=== PATIENT | female | born 1955 | race Caucasian/White ===

== ENCOUNTER 2020-04-05 11:57 | Outpatient (REF) | payer MEDICARE, SELFPAY ==
[2020-04-05 12:41] LABS: MANUAL DIFF FLAG NO
[2020-04-05 12:46] LABS: Basophils Absolute Auto 0.1 X10*3/uL (0.0-0.2); Basophils Percent Auto 1.2 % (0-2); Eosinophils Absolute Auto 0.2 X10*3/uL (0.0-0.4); Eosinophils Percent Auto 3.3 % (0-4); Hematocrit 41.6 % (37-47); Hemoglobin 14.7 g/dl (12.0-16.0); Imm Gran Abs Auto 0.01 X10*3/uL (0.00-0.03); Imm Gran Pct Auto 0.2 % (0.0-0.4); Lymphocytes Absolute Auto 2.3 X10*3/uL (1.2-4.9); Lymphocytes Percent Auto 39.3 % (20-40); Mean Corpuscular HGB Conc 35.3 g/dl (31.0-35.0); Mean Corpuscular Hemoglobin 32.8 pg (27.0-33.0); Mean Corpuscular Volume 92.9 fL (80-98); Mean Platelet Volume 9.5 fL (9.4-12.3); Monocytes Absolute Auto 1.2 X10*3/uL (0.1-1.2); Neutrophils Absolute Auto 2.1 X10*3/uL (2.0-8.3); Platelet Count 276 X10*3/uL (160-400); Red Blood Count 4.48 X10*6/uL (4.20-5.50); Red Cell Distribution Width 13.2 % (11.0-16.0); White Blood Count 5.8 X10*3/uL (4.8-10.8)
[2020-04-05 13:35] LABS: Alanine Aminotransferase 38 U/L (0-31); Albumin Level 4.3 g/dL (3.5-5.0); Alkaline Phosphatase 77 U/L (39-117); Anion Gap 12 (12-20); Aspartate Amino Transferase 28 U/L (5-31); Bilirubin Total 0.8 mg/dL (0.0-1.0); Blood Urea Nitrogen 22 mg/dL (9-16); C Reactive Protein 0.28 mg/dL (< or = 0.50); Calcium 10.1 mg/dL (8.4-10.2); Carbon Dioxide 31 mmol/L (22-29); Chloride 101 mmol/L (96-108); Estimated Glomerular Filt Rate 51; Glucose Random 96 mg/dL (60-115); Potassium 4.6 mmol/l (3.3-5.1); Sodium 139 mmol/L (135-145); Total Protein 7.4 g/dL (6.5-8.0)
[2020-04-05 13:57] LABS: Erythrocyte Sedimentation Rate 13 MM/HR (0-20)
== END 2020-04-05 11:58 | disposition home or self-care (01) ==
LOC: HO.LAB 11:57
PROVIDERS: PCP Internal Medicine; Visit Provider Student in an Organized Health Care Education/Training Program
DX: L40.50 Arthropathic psoriasis, unspecified (principal); L40.9 Psoriasis, unspecified; Z79.899 Other long term (current) drug therapy
CPT/HCPCS: 36415; 80053; 85025; 85652; 86140

== ENCOUNTER → 2020-04-13 07:20 | Outpatient (BNVA) | payer MEDICARE, SELFPAY | PROVIDERS: PCP Internal Medicine; Referring Provider Internal Medicine; Visit Provider Student in an Organized Health Care Education/Training Program | DX: L40.50 Arthropathic psoriasis, unspecified (principal); L40.9 Psoriasis, unspecified; Z79.899 Other long term (current) drug therapy | CPT/HCPCS: 99214 ==

== ENCOUNTER 2020-07-11 08:35 | Outpatient (REF) | payer MEDICARE, SELFPAY ==
[2020-07-11 09:00] LABS: MANUAL DIFF FLAG NO
[2020-07-11 09:04] LABS: Basophils Absolute Auto 0.1 X10*3/uL (0.0-0.2); Basophils Percent Auto 1.8 % (0-2); Eosinophils Absolute Auto 0.4 X10*3/uL (0.0-0.4); Eosinophils Percent Auto 5.6 % (0-4); Hematocrit 42.4 % (37-47); Hemoglobin 14.4 g/dl (12.0-16.0); Imm Gran Abs Auto 0.02 X10*3/uL (0.00-0.03); Imm Gran Pct Auto 0.3 % (0.0-0.4); Lymphocytes Absolute Auto 2.6 X10*3/uL (1.2-4.9); Lymphocytes Percent Auto 41.1 % (20-40); Mean Corpuscular Hemoglobin 32.2 pg (27.0-33.0); Mean Corpuscular Volume 94.9 fL (80-98); Mean Platelet Volume 9.5 fL (9.4-12.3); Monocytes Absolute Auto 0.8 X10*3/uL (0.1-1.2); Monocytes Percent Auto 12.9 % (2-11); Neutrophils Absolute Auto 2.4 X10*3/uL (2.0-8.3); Neutrophils Percent Auto 38.3 % (45-73); Platelet Count 303 X10*3/uL (160-400); Red Blood Count 4.47 X10*6/uL (4.20-5.50); Red Cell Distribution Width 12.8 % (11.0-16.0); White Blood Count 6.3 X10*3/uL (4.8-10.8)
[2020-07-11 09:33] LABS: Alanine Aminotransferase 58 U/L (0-31); Albumin Level 4.1 g/dL (3.5-5.0); Alkaline Phosphatase 79 U/L (39-117); Anion Gap 13 (12-20); Aspartate Amino Transferase 37 U/L (5-31); Bilirubin Total 0.5 mg/dL (0.0-1.0); Blood Urea Nitrogen 20 mg/dL (9-16); C Reactive Protein 0.15 mg/dL (< or = 0.50); Calcium 9.5 mg/dL (8.4-10.2); Carbon Dioxide 30 mmol/L (22-29); Chloride 104 mmol/L (96-108); Estimated Glomerular Filt Rate 54; Glucose Random 138 mg/dL (60-115); Potassium 4.8 mmol/l (3.3-5.1); Sodium 142 mmol/L (135-145); Total Protein 7.1 g/dL (6.5-8.0)
[2020-07-11 10:13] LABS: Erythrocyte Sedimentation Rate 10 MM/HR (0-20)
== END 2020-07-11 08:36 | disposition home or self-care (01) ==
LOC: HO.LAB 08:35
PROVIDERS: PCP Internal Medicine; Visit Provider Student in an Organized Health Care Education/Training Program
DX: L40.50 Arthropathic psoriasis, unspecified (principal); L40.9 Psoriasis, unspecified
CPT/HCPCS: 36415; 80053; 85025; 85652; 86140

== ENCOUNTER → 2020-07-20 07:56 | Outpatient (BNVA) | payer MEDICARE, SELFPAY | PROVIDERS: PCP Internal Medicine; Visit Provider Student in an Organized Health Care Education/Training Program | DX: Z13.89 Encounter for screening for other disorder (principal) | CPT/HCPCS: Q3014 ==

== ENCOUNTER 2020-09-20 10:54 | Outpatient (REF) | payer MEDICARE, SELFPAY ==
[2020-09-20 11:24] LABS: MANUAL DIFF FLAG NO
[2020-09-20 11:50] LABS: Basophils Absolute Auto 0.1 X10*3/uL (0.0-0.2); Basophils Percent Auto 1.6 % (0-2); Eosinophils Absolute Auto 0.2 X10*3/uL (0.0-0.4); Hemoglobin 14.5 g/dl (12.0-16.0); Imm Gran Abs Auto 0.03 X10*3/uL (0.00-0.03); Imm Gran Pct Auto 0.5 % (0.0-0.4); Lymphocytes Absolute Auto 2.1 X10*3/uL (1.2-4.9); Lymphocytes Percent Auto 37.9 % (20-40); Mean Corpuscular HGB Conc 34.5 g/dl (31.0-35.0); Mean Corpuscular Hemoglobin 32.2 pg (27.0-33.0); Mean Corpuscular Volume 93.3 fL (80-98); Mean Platelet Volume 9.4 fL (9.4-12.3); Monocytes Percent Auto 18.6 % (2-11); Neutrophils Absolute Auto 2.1 X10*3/uL (2.0-8.3); Neutrophils Percent Auto 38.4 % (45-73); Platelet Count 298 X10*3/uL (160-400); Red Cell Distribution Width 13.3 % (11.0-16.0); White Blood Count 5.6 X10*3/uL (4.8-10.8)
[2020-09-20 12:01] LABS: Alanine Aminotransferase 42 U/L (0-31); Alkaline Phosphatase 71 U/L (39-117); Anion Gap 9 (12-20); Aspartate Amino Transferase 24 U/L (5-31); Bilirubin Total 0.6 mg/dL (0.0-1.0); Blood Urea Nitrogen 16 mg/dL (9-16); C Reactive Protein 0.32 mg/dL (< or = 0.50); Calcium 9.3 mg/dL (8.4-10.2); Carbon Dioxide 31 mmol/L (22-29); Chloride 105 mmol/L (96-108); Estimated Glomerular Filt Rate 51; Glucose Random 106 mg/dL (60-115); Potassium 4.4 mmol/L (3.3-5.1); Sodium 141 mmol/L (135-145); Total Protein 7.1 g/dL (6.5-8.0)
[2020-09-20 13:50] LABS: Erythrocyte Sedimentation Rate 11 MM/HR (0-20)
== END 2020-09-20 10:55 | disposition home or self-care (01) ==
LOC: HO.LAB 10:54
PROVIDERS: PCP Internal Medicine; Visit Provider Student in an Organized Health Care Education/Training Program
DX: L40.50 Arthropathic psoriasis, unspecified (principal)
CPT/HCPCS: 36415; 80053; 85025; 85652; 86140

== ENCOUNTER 2020-10-11 08:18 | Outpatient (REF) | payer MEDICARE, SELFPAY ==
--- NOTE | ~2020-10-11 | XR_ITS ---
EXAMINATION: XR HIP, LEFT CLINICAL INFORMATION: Arthropathic psoriasis, unspecified COMPARISON: None TECHNIQUE: AP and frog-leg lateral views of the left hip. FINDINGS: There is a dense sclerotic focus within the medial aspect of the femoral head-neck junction which may correspond to a bone island. A more ill-defined rounded focus of increased density overlying the intertrochanteric region and basicervical region measures 2.9 x 2.2 cm and is of uncertain etiology. Increased density at the left ischial tuberosity may correspond to enthesopathic spurring. 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 Left hip joint appears relatively well preserved. Phleboliths are present in the pelvis. XR/XR hip LT min 2V IMPRESSION: 1. A 2.9 cm sclerotic focus in the left proximal femur which is of uncertain etiology. Consider correlation with MRI of the left hip with and without contrast to further assess for underlying osseous lesion. 2. 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
== END 2020-10-11 08:19 | disposition home or self-care (01) ==
LOC: HO.XRAY 08:18
PROVIDERS: PCP Internal Medicine; Visit Provider Student in an Organized Health Care Education/Training Program
DX: L40.50 Arthropathic psoriasis, unspecified (principal); M25.552 Pain in left hip; Z79.899 Other long term (current) drug therapy
CPT/HCPCS: 73502; 99212

== ENCOUNTER 2020-10-18 08:36 | Outpatient (REF) | payer MEDICARE, SELFPAY ==
--- NOTE | ~2020-10-18 | MR_ITS ---
EXAMINATION: MR HIP WITHOUT AND WITH CONTRAST, LEFT CLINICAL INFORMATION: History of psoriatic arthritis. Worsening left hip pain. COMPARISON: X-ray left hip 10/11/2020. TECHNIQUE: MRI of the left hip was performed before and after the intravenous administration of 10 mL Gadavist on a high-field scanner. FINDINGS: BONE/JOINTS: Normal articulation of the left hip joint. No evidence of fracture, avascular necrosis or stress reaction. No significant arthropathy is seen. In the region of the ill-defined density seen on the recent x-ray in the the basicervical/intertrochanteric region, is normal marrow signal. No suspicious signal changes or abnormal enhancement is identified in this region. Mild symphysis pubis degeneration. On the coronal sequence of the pelvis, there is normal articulation of the right hip joint. Bilateral SI joints are intact. LABRUM: T2 bright signal at the base of the posterosuperior labrum, with suggestion of a small paralabral cyst, raises concern for a subtle tear. There is degenerative signal in the anterosuperior labrum. MUSCLES/TENDONS: Ikar-ll-jfhtoeda distal gluteus medius tendinosis. Gluteus minimus, iliopsoas, rectus femoris tendons are intact. Mild left common hamstring tendinosis. There is mild edema in the quadratus femoris muscle, which could be related to strain injury. The ischial-femoral distance measures 3 cm. MISCELLANEOUS: No groin lymphadenopathy. Urinary bladder is nondistended. No free fluid is seen in the pelvis. MR/MR hip LT wo/w con IMPRESSION: 1. No abnormal signal or suspicious areas of enhancement identified in the proximal femur, with attention to the area of ill-defined sclerosis seen on the x-ray. Recommend ongoing radiographic follow up to ensure stability. Follow up MRI can be obtained as clinically warranted. 2. No evidence of acute osseous abnormality. 3. Suspected posterosuperior labral tear with small parameniscal cyst. 4. Rycv-ru-dhgogpya distal gluteus medius tendinosis. 5. Quadratus femoris muscle edema, could be related to strain injury.
== END 2020-10-18 08:37 | disposition home or self-care (01) ==
LOC: HO.MRI 08:36
PROVIDERS: Visit Provider Student in an Organized Health Care Education/Training Program
DX: R93.7 Abnormal findings on diagnostic imaging of other parts of musculoskeletal system (principal)
CPT/HCPCS: 73723; A9585

== ENCOUNTER 2021-01-16 12:27 | Outpatient (REF) | payer MEDICARE, SELFPAY ==
[2021-01-16 13:12] LABS: MANUAL DIFF FLAG NO
[2021-01-16 13:17] LABS: Basophils Absolute Auto 0.1 X10*3/uL (0.0-0.2); Eosinophils Absolute Auto 0.2 X10*3/uL (0.0-0.4); Eosinophils Percent Auto 3.4 % (0-4); Hematocrit 41.4 % (37-47); Hemoglobin 14.3 g/dl (12.0-16.0); Imm Gran Abs Auto 0.01 X10*3/uL (0.00-0.03); Imm Gran Pct Auto 0.2 % (0.0-0.4); Lymphocytes Absolute Auto 2.3 X10*3/uL (1.2-4.9); Lymphocytes Percent Auto 36.8 % (20-40); Mean Corpuscular HGB Conc 34.5 g/dl (31.0-35.0); Mean Corpuscular Hemoglobin 31.9 pg (27.0-33.0); Mean Corpuscular Volume 92.4 fL (80-98); Mean Platelet Volume 9.8 fL (9.4-12.3); Monocytes Absolute Auto 0.9 X10*3/uL (0.1-1.2); Monocytes Percent Auto 14.8 % (2-11); Neutrophils Absolute Auto 2.7 X10*3/uL (2.0-8.3); Neutrophils Percent Auto 43.8 % (45-73); Platelet Count 307 X10*3/uL (160-400); Red Blood Count 4.48 X10*6/uL (4.20-5.50); Red Cell Distribution Width 13.2 % (11.0-16.0); White Blood Count 6.2 X10*3/uL (4.8-10.8)
[2021-01-16 13:54] LABS: Alanine Aminotransferase 34 U/L (0-31); Alkaline Phosphatase 82 U/L (39-117); Anion Gap 10 (12-20); Aspartate Amino Transferase 27 U/L (5-31); Bilirubin Total 0.8 mg/dL (0.0-1.0); Blood Urea Nitrogen 20 mg/dL (9-16); C Reactive Protein 0.23 mg/dL (< or = 0.50); Calcium 10.6 mg/dL (8.4-10.2); Carbon Dioxide 32 mmol/L (22-29); Chloride 103 mmol/L (96-108); Estimated Glomerular Filt Rate 45; Glucose Random 103 mg/dL (60-115); Potassium 3.9 mmol/L (3.3-5.1); Sodium 141 mmol/L (135-145); Total Protein 7.1 g/dL (6.5-8.0)
[2021-01-16 14:27] LABS: Erythrocyte Sedimentation Rate 11 MM/HR (0-20)
== END 2021-01-16 12:28 | disposition home or self-care (01) ==
LOC: HO.LAB 12:27
PROVIDERS: PCP Internal Medicine; Visit Provider Student in an Organized Health Care Education/Training Program
DX: L40.50 Arthropathic psoriasis, unspecified (principal)
CPT/HCPCS: 36415; 80053; 85025; 85652; 86140

== ENCOUNTER → 2021-01-22 07:54 | Outpatient (BNVA) | payer MEDICARE, SELFPAY | PROVIDERS: PCP Internal Medicine; Visit Provider Nurse Practitioner Family | DX: L40.50 Arthropathic psoriasis, unspecified (principal); L40.9 Psoriasis, unspecified; E83.52 Hypercalcemia; Z79.899 Other long term (current) drug therapy | CPT/HCPCS: 99212 ==

== ENCOUNTER 2021-01-29 09:08 | Outpatient (REF) | payer MEDICARE, SELFPAY ==
[2021-01-29 10:17] LABS: Alanine Aminotransferase 40 U/L (0-31); Albumin Level 4.1 g/dL (3.5-5.0); Alkaline Phosphatase 75 U/L (39-117); Anion Gap 11 (12-20); Aspartate Amino Transferase 28 U/L (5-31); Bilirubin Total 0.5 mg/dL (0.0-1.0); Blood Urea Nitrogen 16 mg/dL (9-16); Calcium 9.8 mg/dL (8.4-10.2); Carbon Dioxide 30 mmol/L (22-29); Chloride 104 mmol/L (96-108); Estimated Glomerular Filt Rate 57; Glucose Random 104 mg/dL (60-115); Potassium 4.6 mmol/L (3.3-5.1); Sodium 140 mmol/L (135-145); Total Protein 7.2 g/dL (6.5-8.0)
== END 2021-01-29 09:09 | disposition home or self-care (01) ==
LOC: HO.LAB 09:08
PROVIDERS: PCP Internal Medicine; Visit Provider Nurse Practitioner Family
DX: E83.52 Hypercalcemia (principal)
CPT/HCPCS: 36415; 80053

== ENCOUNTER 2021-04-18 09:30 | Outpatient (REF) | payer MEDICARE, SELFPAY ==
[2021-04-18 09:53] LABS: MANUAL DIFF FLAG NO
[2021-04-18 10:17] LABS: Basophils Absolute Auto 0.1 X10*3/uL (0.0-0.2); Basophils Percent Auto 0.9 % (0-2); Eosinophils Absolute Auto 0.3 X10*3/uL (0.0-0.4); Eosinophils Percent Auto 4.8 % (0-4); Hematocrit 41.5 % (37-47); Hemoglobin 14.4 g/dl (12.0-16.0); Imm Gran Abs Auto 0.01 X10*3/uL (0.00-0.03); Imm Gran Pct Auto 0.2 % (0.0-0.4); Lymphocytes Absolute Auto 2.3 X10*3/uL (1.2-4.9); Lymphocytes Percent Auto 34.7 % (20-40); Mean Corpuscular HGB Conc 34.7 g/dl (31.0-35.0); Mean Corpuscular Hemoglobin 31.9 pg (27.0-33.0); Mean Platelet Volume 9.8 fL (9.4-12.3); Monocytes Percent Auto 15.4 % (2-11); Neutrophils Absolute Auto 2.9 X10*3/uL (2.0-8.3); Platelet Count 300 X10*3/uL (160-400); Red Blood Count 4.51 X10*6/uL (4.20-5.50); Red Cell Distribution Width 13.4 % (11.0-16.0); White Blood Count 6.6 X10*3/uL (4.8-10.8)
[2021-04-18 10:42] LABS: Alanine Aminotransferase 24 U/L (0-31); Albumin Level 3.9 g/dL (3.5-5.0); Alkaline Phosphatase 75 U/L (39-117); Anion Gap 10 (12-20); Aspartate Amino Transferase 24 U/L (5-31); Bilirubin Total 0.7 mg/dL (0.0-1.0); Blood Urea Nitrogen 14 mg/dL (9-16); C Reactive Protein 0.36 mg/dL (< or = 0.50); Calcium 9.4 mg/dL (8.4-10.2); Carbon Dioxide 30 mmol/L (22-29); Chloride 106 mmol/L (96-108); Estimated Glomerular Filt Rate > 60; Glucose Random 104 mg/dL (60-115); Potassium 4.3 mmol/L (3.3-5.1); Sodium 142 mmol/L (135-145); Total Protein 7.1 g/dL (6.5-8.0)
[2021-04-18 11:08] LABS: Erythrocyte Sedimentation Rate 12 MM/HR (0-20)
== END 2021-04-18 09:31 | disposition home or self-care (01) ==
LOC: HO.LAB 09:30
PROVIDERS: PCP Internal Medicine; Visit Provider Nurse Practitioner Family
DX: L40.50 Arthropathic psoriasis, unspecified (principal); Z79.899 Other long term (current) drug therapy
CPT/HCPCS: 36415; 80053; 85025; 85652; 86140

== ENCOUNTER → 2021-04-24 07:41 | Outpatient (BNVA) | payer MEDICARE, SELFPAY | PROVIDERS: PCP Internal Medicine; Visit Provider Nurse Practitioner Family | DX: L40.50 Arthropathic psoriasis, unspecified (principal); L40.9 Psoriasis, unspecified; E83.52 Hypercalcemia; Z79.899 Other long term (current) drug therapy | CPT/HCPCS: 99212 ==

== ENCOUNTER 2021-08-26 09:17 | Outpatient (REF) | payer MEDICARE, SELFPAY ==
[2021-08-26 10:07] LABS: Basophils Absolute Auto 0.1 X10*3/uL (0.0-0.2); Eosinophils Absolute Auto 0.1 X10*3/uL (0.0-0.4); Eosinophils Percent Auto 3.2 % (0-4); Hematocrit 44.7 % (37.0-47.0); Hemoglobin 15.4 g/dl (12.0-16.0); Lymphocytes Absolute Auto 1.6 X10*3/uL (1.2-4.9); Lymphocytes Percent Auto 39.2 % (20-40); MANUAL DIFF FLAG SCAN; Mean Corpuscular HGB Conc 34.5 g/dl (31.0-35.0); Mean Corpuscular Volume 92.7 fL (80.0-98.0); Mean Platelet Volume 9.4 fL (9.4-12.3); Monocytes Percent Auto 25.5 % (2-11); Neutrophils Absolute Auto 1.2 x10*3/uL (2.0-8.3); Neutrophils Percent Auto 30.1 % (45-73); Platelet Count 259 X10*3/uL (160-400); Red Blood Count 4.82 X10*6/uL (4.20-5.50); Red Cell Distribution Width 13.1 % (11.0-16.0); SCAN SMEAR FLAG 1; White Blood Count 4.1 X10*3/uL (4.8-10.8)
[2021-08-26 10:34] LABS: SLIDE REVIEW VERIFIED
[2021-08-26 10:37] LABS: Alanine Aminotransferase 40 U/L (0-31); Alkaline Phosphatase 82 U/L (39-117); Anion Gap 13 (12-20); Aspartate Amino Transferase 33 U/L (5-31); Bilirubin Total 0.7 mg/dL (0.0-1.0); Blood Urea Nitrogen 16 mg/dL (9-16); C Reactive Protein 0.21 mg/dL (< or = 0.50); Carbon Dioxide 29 mmol/L (22-29); Chloride 102 mmol/L (96-108); Estimated Glomerular Filt Rate 52; Glucose Random 108 mg/dL (60-115); Potassium 4.3 mmol/L (3.3-5.1); Sodium 140 mmol/L (135-145); Total Protein 7.4 g/dL (6.5-8.0)
[2021-08-26 10:56] LABS: Erythrocyte Sedimentation Rate 12 MM/HR (0-20)
== END 2021-08-26 09:18 | disposition home or self-care (01) ==
LOC: HO.LAB 09:17
PROVIDERS: PCP Internal Medicine; Visit Provider Nurse Practitioner Family
DX: L40.50 Arthropathic psoriasis, unspecified (principal)
CPT/HCPCS: 36415; 80053; 85025; 85652; 86140

== ENCOUNTER → 2021-10-01 08:10 | Outpatient (BNVA) | payer MEDICARE, SELFPAY | PROVIDERS: PCP Internal Medicine; Visit Provider Nurse Practitioner Family | DX: L40.50 Arthropathic psoriasis, unspecified (principal); L40.9 Psoriasis, unspecified; E83.52 Hypercalcemia; Z79.899 Other long term (current) drug therapy | CPT/HCPCS: 99212 ==

== ENCOUNTER 2022-01-18 08:41 | Outpatient (REF) | payer MEDICARE, SELFPAY ==
[2022-01-18 08:48] LABS: MANUAL DIFF FLAG NO
[2022-01-18 09:56] LABS: Basophils Absolute Auto 0.1 X10*3/uL (0.0-0.2); Basophils Percent Auto 1.1 % (0-2); Eosinophils Absolute Auto 0.2 X10*3/uL (0.0-0.4); Hematocrit 42.1 % (37.0-47.0); Hemoglobin 14.4 g/dl (12.0-16.0); Imm Gran Abs Auto 0.01 X10*3/uL (0.00-0.03); Imm Gran Pct Auto 0.1 % (0.0-0.4); Lymphocytes Absolute Auto 4.1 X10*3/uL (1.2-4.9); Lymphocytes Percent Auto 53.2 % (20-40); Mean Corpuscular HGB Conc 34.2 g/dl (31.0-35.0); Mean Corpuscular Hemoglobin 31.7 pg (27.0-33.0); Mean Corpuscular Volume 92.7 fL (80.0-98.0); Mean Platelet Volume 9.9 fL (9.4-12.3); Monocytes Absolute Auto 1.1 X10*3/uL (0.1-1.2); Monocytes Percent Auto 13.8 % (2-11); Neutrophils Absolute Auto 2.2 x10*3/uL (2.0-8.3); Neutrophils Percent Auto 28.8 % (45-73); Platelet Count 269 X10*3/uL (160-400); Red Blood Count 4.54 X10*6/uL (4.20-5.50); Red Cell Distribution Width 13.5 % (11.0-16.0); White Blood Count 7.6 X10*3/uL (4.8-10.8)
[2022-01-18 10:03] LABS: Alanine Aminotransferase 27 U/L (0-31); Albumin Level 4.2 g/dL (3.5-5.0); Alkaline Phosphatase 65 U/L (39-117); Anion Gap 14 (12-20); Aspartate Amino Transferase 30 U/L (5-31); Bilirubin Total 0.5 mg/dL (0.0-1.0); Blood Urea Nitrogen 22 mg/dL (9-16); C Reactive Protein 0.11 mg/dL (< or = 0.50); Calcium 9.8 mg/dL (8.4-10.2); Carbon Dioxide 31 mmol/L (22-29); Chloride 102 mmol/L (96-108); Estimated Glomerular Filt Rate 48; Glucose Random 90 mg/dL (60-115); Potassium 3.9 mmol/L (3.3-5.1); Sodium 143 mmol/L (135-145); Total Protein 7.6 g/dL (6.5-8.0)
[2022-01-18 10:34] LABS: Erythrocyte Sedimentation Rate 13 MM/HR (0-20)
== END 2022-01-18 08:42 | disposition home or self-care (01) ==
LOC: HO.LAB 08:41
PROVIDERS: PCP Internal Medicine; Visit Provider Nurse Practitioner Family
DX: L40.50 Arthropathic psoriasis, unspecified (principal)
CPT/HCPCS: 36415; 80053; 85025; 85652; 86140

== ENCOUNTER → 2022-01-23 07:50 | Outpatient (BNVA) | payer MEDICARE, SELFPAY | PROVIDERS: PCP Internal Medicine; Visit Provider Nurse Practitioner Family | DX: L40.50 Arthropathic psoriasis, unspecified (principal); Z79.899 Other long term (current) drug therapy; Z79.891 Long term (current) use of opiate analgesic | CPT/HCPCS: 99212 ==

== ENCOUNTER 2022-04-10 12:17 | Outpatient (REF) | payer MEDICARE, SELFPAY ==
[2022-04-10 13:57] LABS: Basophils Absolute Auto 0.1 X10*3/uL (0.0-0.2); Basophils Percent Auto 0.8 % (0-2); Eosinophils Absolute Auto 0.1 X10*3/uL (0.0-0.4); Eosinophils Percent Auto 0.9 % (0-4); Hematocrit 40.9 % (37.0-47.0); Hemoglobin 14.1 g/dl (12.0-16.0); Imm Gran Abs Auto 0.01 X10*3/uL (0.00-0.03); Imm Gran Pct Auto 0.1 % (0.0-0.4); Lymphocytes Percent Auto 58.6 % (20-40); MANUAL DIFF FLAG SCAN; Mean Corpuscular HGB Conc 34.5 g/dl (31.0-35.0); Mean Corpuscular Hemoglobin 32.3 pg (27.0-33.0); Mean Corpuscular Volume 93.8 fL (80.0-98.0); Mean Platelet Volume 9.7 fL (9.4-12.3); Monocytes Absolute Auto 0.9 X10*3/uL (0.1-1.2); Monocytes Percent Auto 10.3 % (2-11); Neutrophils Absolute Auto 2.5 x10*3/uL (2.0-8.3); Neutrophils Percent Auto 29.3 % (45-73); Platelet Count 266 X10*3/uL (160-400); Red Blood Count 4.36 X10*6/uL (4.20-5.50); Red Cell Distribution Width 13.2 % (11.0-16.0); SCAN SMEAR FLAG 1; White Blood Count 8.6 X10*3/uL (4.8-10.8)
[2022-04-10 14:13] LABS: Alanine Aminotransferase 19 U/L (0-31); Aspartate Amino Transferase 27 U/L (5-31); C Reactive Protein 0.12 mg/dL (< or = 0.50); Estimated Glomerular Filt Rate 55
[2022-04-10 14:24] LABS: SLIDE REVIEW VERIFIED
[2022-04-10 14:39] LABS: Erythrocyte Sedimentation Rate 16 MM/HR (0-20)
== END 2022-04-10 12:18 | disposition home or self-care (01) ==
LOC: HO.HMGCLDS 12:17
PROVIDERS: PCP Internal Medicine; Visit Provider Nurse Practitioner Family
DX: L40.50 Arthropathic psoriasis, unspecified (principal); Z79.899 Other long term (current) drug therapy
CPT/HCPCS: 36415; 82565; 84450; 84460; 85025; 85652; 86140

== ENCOUNTER → 2022-04-28 09:04 | Outpatient (BNVA) | payer MEDICARE, SELFPAY | PROVIDERS: PCP Internal Medicine; Visit Provider Nurse Practitioner Family | DX: L40.50 Arthropathic psoriasis, unspecified (principal); Z79.899 Other long term (current) drug therapy | CPT/HCPCS: 99212 ==

== ENCOUNTER 2022-07-08 10:06 | Outpatient (REF) | payer MEDICARE, SELFPAY ==
[2022-07-08 11:49] LABS: MANUAL DIFF FLAG NO
[2022-07-08 12:02] LABS: Basophils Absolute Auto 0.1 X10*3/uL (0.0-0.2); Eosinophils Absolute Auto 0.1 X10*3/uL (0.0-0.4); Eosinophils Percent Auto 1.6 % (0-4); Hematocrit 42.9 % (37.0-47.0); Hemoglobin 14.8 g/dl (12.0-16.0); Imm Gran Abs Auto 0.02 X10*3/uL (0.00-0.03); Imm Gran Pct Auto 0.3 % (0.0-0.4); Lymphocytes Absolute Auto 4.2 X10*3/uL (1.2-4.9); Lymphocytes Percent Auto 57.1 % (20-40); Mean Corpuscular HGB Conc 34.5 g/dl (31.0-35.0); Mean Corpuscular Hemoglobin 32.2 pg (27.0-33.0); Mean Corpuscular Volume 93.5 fL (80.0-98.0); Monocytes Absolute Auto 0.8 X10*3/uL (0.1-1.2); Monocytes Percent Auto 11.1 % (2-11); Neutrophils Absolute Auto 2.1 x10*3/uL (2.0-8.3); Neutrophils Percent Auto 28.9 % (45-73); Platelet Count 269 X10*3/uL (160-400); Red Blood Count 4.59 X10*6/uL (4.20-5.50); Red Cell Distribution Width 13.1 % (11.0-16.0); White Blood Count 7.4 X10*3/uL (4.8-10.8)
[2022-07-08 12:47] LABS: Erythrocyte Sedimentation Rate 16 MM/HR (0-20)
[2022-07-08 14:16] LABS: Alanine Aminotransferase 20 U/L (0-31); Aspartate Amino Transferase 24 U/L (5-31); C Reactive Protein 0.13 mg/dL (< or = 0.50); Estimated Glomerular Filt Rate 54
== END 2022-07-08 10:07 | disposition home or self-care (01) ==
LOC: HO.HMGCLDS 10:06
PROVIDERS: Visit Provider Nurse Practitioner Family
DX: L40.50 Arthropathic psoriasis, unspecified (principal); Z79.899 Other long term (current) drug therapy
CPT/HCPCS: 36415; 82565; 84450; 84460; 85025; 85652; 86140

== ENCOUNTER → 2022-08-22 08:05 | Outpatient (BNVA) | payer MEDICARE, SELFPAY | PROVIDERS: PCP Internal Medicine; Visit Provider Nurse Practitioner Family | DX: L40.50 Arthropathic psoriasis, unspecified (principal); Z79.631 Long term (current) use of antimetabolite agent | CPT/HCPCS: 99212 ==

== ENCOUNTER 2022-10-13 09:56 | Outpatient (REF) | payer MEDICARE, SELFPAY ==
[2022-10-13 11:17] LABS: MANUAL DIFF FLAG NO
[2022-10-13 11:45] LABS: Basophils Absolute Auto 0.1 X10*3/uL (0.0-0.2); Basophils Percent Auto 1.4 % (0-2); Eosinophils Absolute Auto 0.2 X10*3/uL (0.0-0.4); Eosinophils Percent Auto 2.9 % (0-4); Hematocrit 41.2 % (37.0-47.0); Hemoglobin 13.9 g/dl (12.0-16.0); Lymphocytes Absolute Auto 3.4 X10*3/uL (1.2-4.9); Lymphocytes Percent Auto 58.2 % (20-40); Mean Corpuscular HGB Conc 33.7 g/dl (31.0-35.0); Mean Corpuscular Volume 94.7 fL (80.0-98.0); Mean Platelet Volume 9.8 fL (9.4-12.3); Monocytes Absolute Auto 0.8 X10*3/uL (0.1-1.2); Monocytes Percent Auto 13.2 % (2-11); Neutrophils Absolute Auto 1.4 x10*3/uL (2.0-8.3); Neutrophils Percent Auto 24.3 % (45-73); Platelet Count 261 X10*3/uL (160-400); Red Blood Count 4.35 X10*6/uL (4.20-5.50); Red Cell Distribution Width 13.2 % (11.0-16.0); White Blood Count 5.9 X10*3/uL (4.8-10.8)
[2022-10-13 11:56] LABS: Alanine Aminotransferase 18 U/L (0-31); Albumin Level 3.8 g/dL (3.5-5.0); Alkaline Phosphatase 71 U/L (39-117); Anion Gap 10 (12-20); Aspartate Amino Transferase 20 U/L (5-31); Bilirubin Total 0.7 mg/dL (0.0-1.0); Blood Urea Nitrogen 20 mg/dL (9-16); C Reactive Protein 0.11 mg/dL (< or = 0.50); Calcium 9.9 mg/dL (8.4-10.2); Carbon Dioxide 30 mmol/L (22-29); Chloride 107 mmol/L (96-108); Estimated Glomerular Filt Rate 49; Glucose Random 91 mg/dL (60-115); Potassium 4.2 mmol/L (3.3-5.1); Sodium 143 mmol/L (135-145); Total Protein 6.8 g/dL (6.5-8.0)
[2022-10-13 12:25] LABS: Erythrocyte Sedimentation Rate 12 MM/HR (0-20)
== END 2022-10-13 09:57 | disposition home or self-care (01) ==
LOC: HO.HMGCLDS 09:56
PROVIDERS: PCP Internal Medicine; Visit Provider Nurse Practitioner Family
DX: L40.50 Arthropathic psoriasis, unspecified (principal)
CPT/HCPCS: 36415; 80053; 85025; 85652; 86140

== ENCOUNTER 2022-10-21 08:29 | Outpatient (REF) | payer MEDICARE, SELFPAY ==
--- NOTE | ~2022-10-21 | XR_ITS ---
EXAMINATION: XR KNEE, LEFT CLINICAL INFORMATION: M25.562 - Pain in left knee COMPARISON: None available. TECHNIQUE: Four views of the left knee. FINDINGS: Normal bony mineralization. No fracture, dislocation, destructive process. The medial and lateral knee joint compartments show no narrowing or erosive change or chondrocalcinosis. No subchondral sclerosis. There is borderline narrowing lateral patellofemoral joint. There is spurring at the quadriceps insertion patella. Probable mild thickening distal quadriceps tendon. No definite suprapatellar effusion. The deep infrapatellar recess is preserved. XR/XR knee LT 4V IMPRESSION: - Borderline narrowing lateral patellofemoral joint. - Spurring at quadriceps insertion patella. Probable mild thickening distal quadriceps.
[2022-10-21 11:16] LABS: MANUAL DIFF FLAG NO
[2022-10-21 11:34] LABS: Basophils Absolute Auto 0.1 X10*3/uL (0.0-0.2); Basophils Percent Auto 1.4 % (0-2); Eosinophils Absolute Auto 0.2 X10*3/uL (0.0-0.4); Eosinophils Percent Auto 2.6 % (0-4); Hematocrit 41.2 % (37.0-47.0); Imm Gran Abs Auto 0.01 X10*3/uL (0.00-0.03); Imm Gran Pct Auto 0.1 % (0.0-0.4); Lymphocytes Absolute Auto 4.2 X10*3/uL (1.2-4.9); Lymphocytes Percent Auto 57.9 % (20-40); Mean Corpuscular Hemoglobin 32.1 pg (27.0-33.0); Mean Corpuscular Volume 94.5 fL (80.0-98.0); Neutrophils Absolute Auto 1.7 x10*3/uL (2.0-8.3); Platelet Count 280 X10*3/uL (160-400); Red Blood Count 4.36 X10*6/uL (4.20-5.50); Red Cell Distribution Width 13.4 % (11.0-16.0); White Blood Count 7.2 X10*3/uL (4.8-10.8)
== END 2022-10-21 08:30 | disposition home or self-care (01) ==
LOC: HO.HMGCX 08:29
PROVIDERS: PCP Internal Medicine; Visit Provider Nurse Practitioner Family
DX: D70.9 Neutropenia, unspecified (principal); M25.562 Pain in left knee
CPT/HCPCS: 36415; 73564; 85025

== ENCOUNTER 2022-11-28 09:02 | Outpatient (REF) | payer MEDICARE, SELFPAY ==
--- NOTE | ~2022-11-28 | XR_ITS ---
EXAMINATION: Bilateral knee x-ray CLINICAL INFORMATION: Pain COMPARISON: Previous x-ray most recent October 2022 TECHNIQUE: Standing AP view of both knees and lateral and sunrise view of the left knee FINDINGS: Left knee: Bone alignment is normal. No fracture or dislocation. Mild medial femoral tibial joint space narrowing. Small osteophytes at the patellofemoral joint. Small joint effusion. Standing AP view of the right knee demonstrates mild arthritis at the medial femoral tibial joint. XR/XR knee LT 2V IMPRESSION: Degenerative changes
--- NOTE | ~2022-11-28 | XR_ITS ---
EXAMINATION: XR PELVIS CLINICAL INFORMATION: Pain COMPARISON: None available. TECHNIQUE: AP view of the pelvis. FINDINGS: Bone alignment is normal. No fracture or dislocation. Mild arthritis with small osteophytes at the superior lateral hip joints. Joint spaces are otherwise normal. Degenerative changes of the lower lumbar spine. Small osteophytes at the greater trochanters bilaterally. Soft tissues are otherwise normal. XR/XR pelvis 1-2V IMPRESSION: Mild degenerative changes at the hip joints.
--- NOTE | ~2022-11-28 | XR_ITS ---
EXAMINATION: Bilateral knee x-ray CLINICAL INFORMATION: Pain COMPARISON: Previous x-ray most recent October 2022 TECHNIQUE: Standing AP view of both knees and lateral and sunrise view of the left knee FINDINGS: Left knee: Bone alignment is normal. No fracture or dislocation. Mild medial femoral tibial joint space narrowing. Small osteophytes at the patellofemoral joint. Small joint effusion. Standing AP view of the right knee demonstrates mild arthritis at the medial femoral tibial joint. XR/XR knee standing BI IMPRESSION: Degenerative changes
== END 2022-11-28 09:03 | disposition home or self-care (01) ==
LOC: HO.HOSX 09:02
PROVIDERS: Visit Provider Orthopaedic Surgery
DX: M17.12 Unilateral primary osteoarthritis, left knee (principal); M25.462 Effusion, left knee; L40.50 Arthropathic psoriasis, unspecified; Z79.899 Other long term (current) drug therapy
CPT/HCPCS: 20610; 72170; 73560; 73565; 99202; J1100

== ENCOUNTER 2022-12-18 10:39 | Outpatient (REF) | payer MEDICARE, SELFPAY ==
[2022-12-18 13:49] LABS: MANUAL DIFF FLAG NO
[2022-12-18 14:06] LABS: Basophils Absolute Auto 0.1 X10*3/uL (0.0-0.2); Basophils Percent Auto 1.1 % (0-2); Eosinophils Absolute Auto 0.4 X10*3/uL (0.0-0.4); Eosinophils Percent Auto 5.9 % (0-4); Hematocrit 39.4 % (37.0-47.0); Hemoglobin 13.4 g/dl (12.0-16.0); Imm Gran Abs Auto 0.01 X10*3/uL (0.00-0.03); Imm Gran Pct Auto 0.2 % (0.0-0.4); Lymphocytes Percent Auto 48.9 % (20-40); Mean Corpuscular Hemoglobin 31.8 pg (27.0-33.0); Mean Corpuscular Volume 93.6 fL (80.0-98.0); Mean Platelet Volume 10.2 fL (9.4-12.3); Monocytes Absolute Auto 1.1 X10*3/uL (0.1-1.2); Monocytes Percent Auto 18.3 % (2-11); Neutrophils Absolute Auto 1.6 x10*3/uL (2.0-8.3); Neutrophils Percent Auto 25.6 % (45-73); Platelet Count 254 X10*3/uL (160-400); Red Blood Count 4.21 X10*6/uL (4.20-5.50); Red Cell Distribution Width 13.8 % (11.0-16.0); White Blood Count 6.2 X10*3/uL (4.8-10.8)
[2022-12-18 14:40] LABS: Alanine Aminotransferase 20 U/L (0-31); Aspartate Amino Transferase 23 U/L (5-31); Estimated Glomerular Filt Rate > 60
[2022-12-18 14:48] LABS: Erythrocyte Sedimentation Rate 14 MM/HR (0-20)
== END 2022-12-18 10:40 | disposition home or self-care (01) ==
LOC: HO.HMGCLDS 10:39
PROVIDERS: PCP Internal Medicine; Visit Provider Internal Medicine Rheumatology
DX: L40.50 Arthropathic psoriasis, unspecified (principal); Z79.899 Other long term (current) drug therapy
CPT/HCPCS: 36415; 82565; 84450; 84460; 85025; 85652; 86140

== ENCOUNTER → 2022-12-24 09:47 | Outpatient (BNVA) | payer MEDICARE, SELFPAY | PROVIDERS: PCP Internal Medicine; Visit Provider Internal Medicine Rheumatology | DX: L40.50 Arthropathic psoriasis, unspecified (principal); M17.12 Unilateral primary osteoarthritis, left knee; Z79.899 Other long term (current) drug therapy | CPT/HCPCS: 99212 ==

== ENCOUNTER 2023-03-05 13:13 | Outpatient (REF) | payer MEDICARE, SELFPAY ==
[2023-03-05 16:09] LABS: MANUAL DIFF FLAG NO
[2023-03-05 16:20] LABS: Basophils Absolute Auto 0.1 X10*3/uL (0.0-0.2); Eosinophils Absolute Auto 0.3 X10*3/uL (0.0-0.4); Eosinophils Percent Auto 3.4 % (0-4); Hematocrit 41.7 % (37.0-47.0); Hemoglobin 14.4 g/dl (12.0-16.0); Imm Gran Abs Auto 0.01 X10*3/uL (0.00-0.03); Imm Gran Pct Auto 0.1 % (0.0-0.4); Lymphocytes Absolute Auto 4.8 X10*3/uL (1.2-4.9); Lymphocytes Percent Auto 57.8 % (20-40); Mean Corpuscular HGB Conc 34.5 g/dl (31.0-35.0); Mean Corpuscular Hemoglobin 31.9 pg (27.0-33.0); Mean Corpuscular Volume 92.5 fL (80.0-98.0); Mean Platelet Volume 10.2 fL (9.4-12.3); Monocytes Absolute Auto 1.3 X10*3/uL (0.1-1.2); Monocytes Percent Auto 15.1 % (2-11); Neutrophils Absolute Auto 1.9 x10*3/uL (2.0-8.3); Neutrophils Percent Auto 22.6 % (45-73); Platelet Count 243 X10*3/uL (160-400); Red Blood Count 4.51 X10*6/uL (4.20-5.50); Red Cell Distribution Width 13.1 % (11.0-16.0); White Blood Count 8.3 X10*3/uL (4.8-10.8)
[2023-03-05 16:34] LABS: Alanine Aminotransferase 16 U/L (0-31); Aspartate Amino Transferase 23 U/L (5-31); Estimated Glomerular Filt Rate 36
[2023-03-05 17:39] LABS: Erythrocyte Sedimentation Rate 12 MM/HR (0-20)
== END 2023-03-05 13:14 | disposition home or self-care (01) ==
LOC: HO.HMGCLDS 13:13
PROVIDERS: PCP Internal Medicine; Visit Provider Internal Medicine Rheumatology
DX: L40.50 Arthropathic psoriasis, unspecified (principal); Z79.899 Other long term (current) drug therapy
CPT/HCPCS: 36415; 82565; 84450; 84460; 85025; 85652; 86140

== ENCOUNTER 2023-04-30 10:12 | Outpatient (REF) | payer MEDICARE, SELFPAY ==
[2023-04-30 13:17] LABS: MANUAL DIFF FLAG NO
[2023-04-30 13:29] LABS: Basophils Absolute Auto 0.1 X10*3/uL (0.0-0.2); Eosinophils Absolute Auto 0.2 X10*3/uL (0.0-0.4); Eosinophils Percent Auto 3.5 % (0-4); Hemoglobin 14.3 g/dl (12.0-16.0); Imm Gran Abs Auto 0.01 X10*3/uL (0.00-0.03); Imm Gran Pct Auto 0.2 % (0.0-0.4); Lymphocytes Absolute Auto 2.9 X10*3/uL (1.2-4.9); Lymphocytes Percent Auto 50.1 % (20-40); Mean Platelet Volume 10.2 fL (9.4-12.3); Monocytes Absolute Auto 1.1 X10*3/uL (0.1-1.2); Monocytes Percent Auto 18.4 % (2-11); Neutrophils Absolute Auto 1.6 x10*3/uL (2.0-8.3); Neutrophils Percent Auto 26.8 % (45-73); Platelet Count 233 X10*3/uL (160-400); Red Blood Count 4.47 X10*6/uL (4.20-5.50); Red Cell Distribution Width 13.4 % (11.0-16.0); White Blood Count 5.8 X10*3/uL (4.8-10.8)
[2023-04-30 13:50] LABS: Alanine Aminotransferase 14 U/L (0-31); Aspartate Amino Transferase 21 U/L (5-31); Estimated Glomerular Filt Rate 49
[2023-04-30 14:14] LABS: Erythrocyte Sedimentation Rate 11 MM/HR (0-20)
== END 2023-04-30 10:13 | disposition home or self-care (01) ==
LOC: HO.HMGCLDS 10:12
PROVIDERS: PCP Internal Medicine; Visit Provider Internal Medicine Rheumatology
DX: L40.50 Arthropathic psoriasis, unspecified (principal); Z79.899 Other long term (current) drug therapy
CPT/HCPCS: 36415; 82565; 84450; 84460; 85025; 85652; 86140

== ENCOUNTER 2023-05-18 09:22 | Outpatient (AMB) | payer MEDICARE, SELFPAY ==
[2023-05-18 09:29] VITALS: BP 145/80; PULSE 81; TEMP 36.1; O2SAT 95; BMI 31.0
--- NOTE | 2023-05-18 09:29 | MHC.OFFVIS ---
Intake Vital Signs 05/18/23 09:29 Height 5 ft 7 in Weight 198 lb 3.129 oz BMI 31.0 BP 145/80 H Blood Pressure Location Lt brachial Position Sitting Pulse 81 Pulse Source Pulse Oximeter Temp 97.0 F Temp Source Skin Pulse Oximetry (%) 95 Oxygen Delivery Method Room Air Intake Visit Reasons: psa Intake Note: Patient presents today to follow up on controlled PsA. Inspector Tool Required: No Accompanied by: Self / Same As Patient Allergies clavulanic acid [From Augmentin] Allergy (Mild, Verified 05/18/23 09:33) Stomach Upset Medication List - Last Reconciled 05/18/23 by Mello Shipley MD acetaminophen (Tylenol Extra Strength) 1,000 mg PO Q6H PRN adalimumab (Humira) 40 mg (0.8 mL) subcut Q2W calcium carbonate-vitamin D3 600 mg-10 mcg (400 unit) (Calcium 600 + D(3)) 1 tab PO DAILY cyclobenzaprine 5 mg PO BEDTIME PRN folic acid 1 mg PO DAILY hydrochlorothiazide 25 mg PO DAILY lorazepam 0.5 mg PO BEDTIME PRN methotrexate sodium 12.5 mg (5 x 2.5 mg) PO QWEEK naproxen 500 mg PO BID rosuvastatin (Crestor) 5 mg PO DAILY HPI HPI Comments History of Present Illness Details The patient returns today for evaluation of her psoriatic arthritis. She says she does not have any active psoriasis. Joint symptoms have been fairly stable. There is occasional pain around the right 2nd through 4th MCPs but no swelling. The right 2nd flexor tendon seems to catch at times. She had received last November a corticosteroid injection in the left knee for OA and that seems to have helped. She remains on Humira 40 mg every 2 weeks, folic acid 1 mg daily, methotrexate 12.5 mg weekly, occasional naproxen 500 b.i.d. p.r.n. pain, and rarely uses acetaminophen. She does not seem to have any side effects with the medications. She receives the Humira through the [facility]. [facility] Medical History Psoriasis Psoriatic arthritis Surgical History Hx of removal of cyst H/O rotator cuff surgery Hx of hysterectomy Family History Father CVD (cardiovascular disease) Mother Cancer Sister Rheumatoid arthritis Alcohol intake: never Patient Tobacco Use Status: Never used Tobacco Substance Use Type: Marijuana Review of Systems Const Details: Negative for appetite change, weight change, fever, chills, malaise and fatigue Eyes Details: Negative for vision change, dry eyes,headaches and dizziness ENT Details: Negative for hearing change, tinnitus, oral ulcer, nose bleeds and oral dryness. Card Details: Negative chest pain, edema and syncope Resp Details: Negative for SOB, cough and wheezing GI Details: Negative indigestion/heartburn, nausea, abdominal pain, bowel changes, diarrhea, constipation and bloody stool. Skin/Breast Details: Negative for itching, rash, hives, Raynaud's symptoms, sun sensitivity, and skin cancer Herrera/Lymph Details: Negative for excessive bruising or bleeding. Physical Exam Vital Signs: Last Vital Signs Temp 97.0 F 05/18/23 09:29 Pulse 81 05/18/23 09:29 BP 145/80 H 05/18/23 09:29 Pulse Ox 95 05/18/23 09:29 Oxygen Delivery Method Room Air 05/18/23 09:29 BMI result Body Mass Index 31.0 APPEARANCE: Patient in no acute distress EYES no redness, pupils equal and reactive to light, eyelids normal JOINTY exam: Cervical Spine:? Full range of motion, slight right-sided neck pain with right rotation; no tenderness. Thoracic Spine:? No scoliosis.? No tenderness on palpation. Lumbar Spine:? Alignment normal.? Full range of motion without pain, no tenderness. Hands:? Right: Slight tenderness along the 2nd flexor tendon but no triggering or swelling. No tenderness or swelling in the MCP areas. Left: Normal pain-free range of motion without tenderness, swelling, increased warmth or erythema. Able to make a full fist and has a good team facilitator strength. Wrists:? Normal pain-free range of motion without tenderness, swelling, increased warmth or erythema. Elbows: Normal pain-free range of motion without tenderness, swelling, increased warmth or erythema. Shoulders:?? Full range of motion without pain. No tenderness, weakness, swelling, increased warmth or erythema. Hips:? Full range of motion without pain. Hip bursa:? No tenderness. Knees:? Right: There is mild patellofemoral crepitus but pain-free range of motion without tenderness, effusion, redness or swelling. Left:? Normal pain-free range of motion with mild patellofemoral crepitus. There is no tenderness, effusion, soft tissue swelling, increased warmth or erythema.? Ankles:? Normal pain-free range of motion without tenderness, swelling, increased warmth or erythema. Feet:? Right: Slight 1st MTP bony enlargement. There is a hammertoe deformity at the 2nd toe. However there is no areas of tenderness, soft tissue swelling, breaks in the skin, redness or warmth. Left: Mild 1st MTP bony enlargement without tenderness. There is hammertoe deformities in the 2nd and 3rd toes and they are slightly tender but not red or warm. Elsewhere there is normal pain-free range of motion without tenderness, swelling, increased warmth or erythema.? ? 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 She does have some right 2nd flexor tenosynovitis in the hand. This could be treated with a corticosteroid injection but she does not think it is bad enough to warrant that approach for now. The left knee is involved with some OA. It is not very symptomatic presently either. She seems to tolerate her medications so we will continue as above. Lab work is recommended for 2 months. She was advised to hold her methotrexate the week after she receives a vaccine such as COVID, RSV, or flu vaccine. All of those vaccines are recommended for her given her immunosuppressed status. A follow-up in Rheumatology will be arranged for 4 months. Orders: Orders C Reactive Protein Today L40.50 - Arthropathic psoriasis, unspecified Alanine Aminotransferase Today L40.50 - Arthropathic psoriasis, unspecified, Z79.899 - Other intermodal owner operator truck driver (current) drug therapy Aspartate Amino Transferase Today L40.50 - Arthropathic psoriasis, unspecified, Z79.899 - Other retirement (current) drug therapy Creatinine Today L40.50 - Arthropathic psoriasis, unspecified, Z79.899 - Other intermodal owner operator truck driver (current) drug therapy Erythrocyte Sedimentation Rate Today L40.50 - Arthropathic psoriasis, unspecified Complete Blood Count Auto Diff Today L40.50 - Arthropathic psoriasis, unspecified, Z79.899 - Other intermodal owner operator truck driver (current) drug therapy Medications: Refilled methotrexate sodium 12.5 mg (5 x 2.5 mg) PO QWEEK 64 tabs 1RF L40.50 - Arthropathic psoriasis, unspecified adalimumab (Humira) 40 mg (0.8 mL) subcut Q2W 6 ea 1RF L40.50 - Arthropathic psoriasis, unspecified Coding Level of Care Code Est Pt Level 3 (17751) Diagnoses Psoriasis L40.9 intermediate manager methotrexate user Z79.899 Osteoarthritis of left knee M17.12 Psoriatic arthritis L40.50
== END 2023-05-18 09:55 | disposition home or self-care (01) ==
PROVIDERS: PCP Internal Medicine; Visit Provider Internal Medicine Rheumatology
DX: L40.9 Psoriasis, unspecified (principal); Z79.899 Other long term (current) drug therapy; M17.12 Unilateral primary osteoarthritis, left knee; L40.50 Arthropathic psoriasis, unspecified
CPT/HCPCS: 99213

== ENCOUNTER → 2023-05-18 09:22 | Outpatient (BNVA) | payer MEDICARE, SELFPAY | PROVIDERS: PCP Internal Medicine; Visit Provider Internal Medicine Rheumatology | DX: L40.50 Arthropathic psoriasis, unspecified (principal); M17.12 Unilateral primary osteoarthritis, left knee; Z79.631 Long term (current) use of antimetabolite agent | CPT/HCPCS: 99212 ==

== ENCOUNTER 2023-07-18 09:38 | Outpatient (REF) | payer MEDICARE, SELFPAY ==
[2023-07-18 11:20] LABS: MANUAL DIFF FLAG NO
[2023-07-18 11:31] LABS: Basophils Absolute Auto 0.1 X10*3/uL (0.0-0.2); Basophils Percent Auto 1.4 % (0-2); Eosinophils Absolute Auto 0.2 X10*3/uL (0.0-0.4); Eosinophils Percent Auto 3.4 % (0-4); Hemoglobin 14.5 g/dl (12.0-16.0); Imm Gran Abs Auto 0.01 X10*3/uL (0.00-0.03); Imm Gran Pct Auto 0.2 % (0.0-0.4); Lymphocytes Absolute Auto 3.2 X10*3/uL (1.2-4.9); Mean Corpuscular HGB Conc 34.5 g/dl (31.0-35.0); Mean Corpuscular Hemoglobin 32.2 pg (27.0-33.0); Mean Corpuscular Volume 93.3 fL (80.0-98.0); Mean Platelet Volume 10.1 fL (9.4-12.3); Monocytes Absolute Auto 0.8 X10*3/uL (0.1-1.2); Monocytes Percent Auto 14.1 % (2-11); Neutrophils Absolute Auto 1.6 x10*3/uL (2.0-8.3); Neutrophils Percent Auto 26.9 % (45-73); Platelet Count 268 X10*3/uL (160-400); Red Cell Distribution Width 13.3 % (11.0-16.0); White Blood Count 5.9 X10*3/uL (4.8-10.8)
[2023-07-18 12:15] LABS: Alanine Aminotransferase 25 U/L (0-31); Aspartate Amino Transferase 25 U/L (5-31); C Reactive Protein < 0.10 mg/dL (< or = 0.50); Estimated Glomerular Filt Rate 48
[2023-07-18 12:19] LABS: Erythrocyte Sedimentation Rate 12 MM/HR (0-20)
== END 2023-07-18 09:39 | disposition home or self-care (01) ==
LOC: HO.HMGCLDS 09:38
PROVIDERS: Visit Provider Internal Medicine Rheumatology
DX: L40.50 Arthropathic psoriasis, unspecified (principal); Z79.899 Other long term (current) drug therapy
CPT/HCPCS: 36415; 82565; 84450; 84460; 85025; 85652; 86140

== ENCOUNTER 2023-09-11 11:04 | Outpatient (REF) | payer MEDICARE, SELFPAY ==
[2023-09-11 13:16] LABS: Basophils Absolute Auto 0.1 X10*3/uL (0.0-0.2); Basophils Percent Auto 0.9 % (0-2); Eosinophils Absolute Auto 0.2 X10*3/uL (0.0-0.4); Eosinophils Percent Auto 2.6 % (0-4); Hematocrit 41.6 % (37.0-47.0); Hemoglobin 14.9 g/dl (12.0-16.0); Imm Gran Abs Auto 0.01 X10*3/uL (0.00-0.03); Imm Gran Pct Auto 0.2 % (0.0-0.4); Lymphocytes Percent Auto 52.3 % (20-40); MANUAL DIFF FLAG NO; Mean Corpuscular HGB Conc 35.8 g/dl (31.0-35.0); Mean Platelet Volume 9.9 fL (9.4-12.3); Monocytes Absolute Auto 0.7 X10*3/uL (0.1-1.2); Monocytes Percent Auto 12.7 % (2-11); Neutrophils Absolute Auto 1.8 x10*3/uL (2.0-8.3); Neutrophils Percent Auto 31.3 % (45-73); Platelet Count 249 X10*3/uL (160-400); Red Blood Count 4.52 X10*6/uL (4.20-5.50); Red Cell Distribution Width 13.1 % (11.0-16.0); White Blood Count 5.8 X10*3/uL (4.8-10.8)
[2023-09-11 13:48] LABS: Alanine Aminotransferase 18 U/L (0-31); Albumin Level 3.9 g/dL (3.5-5.0); Alkaline Phosphatase 77 U/L (39-117); Anion Gap 12 (12-20); Aspartate Amino Transferase 22 U/L (5-31); Bilirubin Total 0.6 mg/dL (0.0-1.0); Blood Urea Nitrogen 21 mg/dL (9-16); C Reactive Protein < 0.04 mg/dL (< or = 0.50); Calcium 9.8 mg/dL (8.4-10.2); Carbon Dioxide 30 mmol/L (22-29); Chloride 103 mmol/L (96-108); Estimated Glomerular Filt Rate 59; Glucose Random 102 mg/dL (60-115); Sodium 141 mmol/L (135-145); Total Protein 7.5 g/dL (6.5-8.0)
[2023-09-11 14:06] LABS: Erythrocyte Sedimentation Rate 13 MM/HR (0-20)
== END 2023-09-11 11:05 | disposition home or self-care (01) ==
LOC: HO.HMGCLDS 11:04
PROVIDERS: PCP Internal Medicine; Visit Provider Nurse Practitioner Family
DX: L40.50 Arthropathic psoriasis, unspecified (principal); Z79.60 Long term (current) use of unspecified immunomodulators and immunosuppressants
CPT/HCPCS: 36415; 80053; 85025; 85652; 86140

== ENCOUNTER → 2023-09-17 08:34 | Outpatient (BNVA) | payer MEDICARE, SELFPAY | PROVIDERS: PCP Internal Medicine; Visit Provider Nurse Practitioner Family | DX: L40.50 Arthropathic psoriasis, unspecified (principal); L40.9 Psoriasis, unspecified; M17.12 Unilateral primary osteoarthritis, left knee; Z79.899 Other long term (current) drug therapy | CPT/HCPCS: 20550; 99212 ==

== ENCOUNTER 2023-12-28 08:38 | Outpatient (REF) | payer MEDICARE, SELFPAY ==
[2023-12-28 10:16] LABS: MANUAL DIFF FLAG NO
[2023-12-28 10:26] LABS: Basophils Absolute Auto 0.1 X10*3/uL (0.0-0.2); Basophils Percent Auto 1.4 % (0-2); Eosinophils Absolute Auto 0.3 X10*3/uL (0.0-0.4); Eosinophils Percent Auto 4.2 % (0-4); Hematocrit 41.2 % (37.0-47.0); Imm Gran Abs Auto 0.01 X10*3/uL (0.00-0.03); Imm Gran Pct Auto 0.2 % (0.0-0.4); Lymphocytes Absolute Auto 3.5 X10*3/uL (1.2-4.9); Lymphocytes Percent Auto 53.2 % (20-40); Mean Corpuscular Hemoglobin 32.7 pg (27.0-33.0); Mean Corpuscular Volume 96.3 fL (80.0-98.0); Monocytes Absolute Auto 0.7 X10*3/uL (0.1-1.2); Monocytes Percent Auto 11.1 % (2-11); Neutrophils Percent Auto 29.9 % (45-73); Platelet Count 243 X10*3/uL (160-400); Red Blood Count 4.28 X10*6/uL (4.20-5.50); Red Cell Distribution Width 13.2 % (11.0-16.0); White Blood Count 6.7 X10*3/uL (4.8-10.8)
[2023-12-28 10:34] LABS: Alanine Aminotransferase 18 U/L (0-31); Albumin Level 3.9 g/dL (3.5-5.0); Alkaline Phosphatase 68 U/L (39-117); Anion Gap 12 (12-20); Aspartate Amino Transferase 21 U/L (5-31); Bilirubin Total 0.8 mg/dL (0.0-1.0); Blood Urea Nitrogen 18 mg/dL (9-16); C Reactive Protein < 0.10 mg/dL (< or = 0.50); Calcium 9.2 mg/dL (8.4-10.2); Carbon Dioxide 26 mmol/L (22-29); Chloride 110 mmol/L (96-108); Estimated Glomerular Filt Rate 57; Glucose Random 113 mg/dL (60-115); Potassium 4.7 mmol/L (3.3-5.1); Sodium 143 mmol/L (135-145); Total Protein 7.2 g/dL (6.5-8.0)
[2023-12-28 11:04] LABS: Erythrocyte Sedimentation Rate 10 MM/HR (0-20)
== END 2023-12-28 08:39 | disposition home or self-care (01) ==
LOC: HO.HMGCLDS 08:38
PROVIDERS: PCP Internal Medicine; Visit Provider Nurse Practitioner Family
DX: L40.50 Arthropathic psoriasis, unspecified (principal); L40.9 Psoriasis, unspecified; Z79.60 Long term (current) use of unspecified immunomodulators and immunosuppressants
CPT/HCPCS: 36415; 80053; 85025; 85652; 86140

== ENCOUNTER 2023-12-31 08:03 | Outpatient (AMB) | payer MEDICARE, SELFPAY ==
--- NOTE | 2023-12-31 08:12 | MHC.OFFVIS ---
Vital Signs 12/31/23 08:18 Height 5 ft 7 in Weight 199 lb 15.348 oz BMI 31.3 BP 140/82 H Blood Pressure Location Lt brachial Position Sitting Pulse 78 Pulse Source Pulse Oximeter Pulse Oximetry (%) 98 Oxygen Delivery Method Room Air Intake Visit Reasons: PsA/Labs befor enext visit/cm Intake Note: Patient presents for PsA. Allergies clavulanic acid [From Augmentin] Allergy (Mild, Verified 12/31/23 08:16) Stomach Upset rosuvastatin [From Crestor] Adverse Reaction (Intermediate, Verified 12/31/23 08:41) Muscle aches Medication List - Last Reconciled 12/31/23 by Batsheva Zhao MD acetaminophen (Tylenol Extra Strength) 1,000 mg PO Q6H PRN adalimumab (Humira) 40 mg (0.8 mL) subcut Q2W calcium carbonate-vitamin D3 600 mg-10 mcg (400 unit) (Calcium 600 + D(3)) 1 tab PO DAILY cyclobenzaprine 5 mg PO BEDTIME PRN folic acid 1 mg PO DAILY lisinopril 10 mg PO DAILY methotrexate sodium 12.5 mg (5 x 2.5 mg) PO QWEEK HPI Comments Details: 68-year-old female with psoriasis and psoriatic arthritis returns for follow-up. She was last seen by Rosamaria cam 08/2023. At that time right 3rd flexor tendon was injected with resolution of trigger finger. Today she is feeling quite well overall with no joint pain or swelling. Minimal achiness of right 1st MCP joint as well as 2nd and 3rd MCP joints. No psoriasis rash. No recent infections. She was recently taken off her Crestor due to muscle aches. [facility] Medical History (Updated 12/31/23 @ 08:46 by Batsheva Zhao MD) Psoriasis Psoriatic arthritis Surgical History Hx of removal of cyst H/O rotator cuff surgery Hx of hysterectomy Family History Father CVD (cardiovascular disease) Mother Cancer Sister Rheumatoid arthritis Social History Alcohol intake: never Patient Tobacco Use Status: Never used Tobacco Substance Use Type: Marijuana Review of Systems Musc Denies joint swelling and Denies stiffness Skin/Breast Denies rash Physical Exam Vital Signs: Last Vital Signs Pulse 78 12/31/23 08:18 BP 140/82 H 12/31/23 08:18 Pulse Ox 98 12/31/23 08:18 Oxygen Delivery Method Room Air 12/31/23 08:18 BMI result Body Mass Index 31.3 Const General: cooperative, healthy appearing and comfortable Nutritional Appearance: obese Orientation/consciousness: patient oriented x3 Limitations: no limitations HEENT Head: Yes normocephalic and Yes atraumatic Mouth: moist mucous membranes Resp Effort & Inspection: normal respiratory effort and able to speak in complete sentences Auscultation: clear to auscultation bilaterally Cardio Rate: regular rate Rhythm: regular rhythm Skin Other: Very faint scaly rash behind her right ear Neuro General: patient oriented x3 Extrem Other: Mild osteoarthritic changes of both hands with no swollen joints Mild achiness of right 1st and 2nd MCP joints no finger triggering today No nail pitting Normal nailfold capillaroscopy Assessment & Plan Assessment & Plan (1) Psoriatic arthritis: Comment: Humira: 05/2019- present Enbrel: 12/2018- 11/2019 active disease Methotrexate: 12/2018- present Code(s): L40.50 - Arthropathic psoriasis, unspecified Category: Medical Plan: This is a 68-year-old female with psoriasis and psoriatic arthritis who presents for follow-up. This is her 1st visit with me she used to follow-up with Rosamaria Roque and Dr. Shipley before that. She is doing quite well overall with no active synovitis. Skin almost entirely clear of psoriasis. Continue methotrexate 12.5 mg weekly and Humira 40 mg every other week Continue folic acid 1 mg daily Labs before next visit in 4 months (2) Psoriasis: Code(s): L40.9 - Psoriasis, unspecified Category: Medical Plan: Very well controlled as mentioned above (3) senior living methotrexate user: Code(s): Z79.899 - Other intermediate project manager (current) drug therapy Category: Medical Plan: Monitor safety labs Plan I spent 25 minutes reviewing patient's chart, evaluating patient, ordering diagnostic workup, counseling patient and documenting in the chart Orders: Orders Comprehensive Met. Panel 4 Months L40.50 - Arthropathic psoriasis, unspecified, Z79.899 - Other [facility] (current) drug therapy Erythrocyte Sedimentation Rate 4 Months L40.50 - Arthropathic psoriasis, unspecified, Z79.899 - Other [facility] (current) drug therapy Hepatitis A,B,C Profile 4 Months Z11.59 - Encounter for screening for other viral diseases T Spot TB 4 Months Z11.7 - Encounter for testing for latent tuberculosis infection Complete Blood Count Auto Diff 4 Months L40.50 - Arthropathic psoriasis, unspecified, Z79.899 - Other intermediate project manager (current) drug therapy C Reactive Protein 4 Months L40.50 - Arthropathic psoriasis, unspecified, Z79.899 - Other intermediate project manager (current) drug therapy Medications: Refilled methotrexate sodium 12.5 mg (5 x 2.5 mg) PO QWEEK 65 tabs 1RF L40.50 - Arthropathic psoriasis, unspecified Coding Level of Care Code Est Pt Level 4 (38693) Diagnoses Psoriatic arthritis L40.50 Psoriasis L40.9 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
[2023-12-31 08:18] VITALS: BP 140/82; PULSE 78; O2SAT 98; BMI 31.3
== END 2023-12-31 08:40 | disposition home or self-care (01) ==
PROVIDERS: PCP Internal Medicine; Visit Provider Student in an Organized Health Care Education/Training Program
DX: L40.50 Arthropathic psoriasis, unspecified (principal); L40.9 Psoriasis, unspecified; Z79.899 Other long term (current) drug therapy
CPT/HCPCS: 99214

== ENCOUNTER → 2023-12-31 08:03 | Outpatient (BNVA) | payer MEDICARE, SELFPAY | PROVIDERS: PCP Internal Medicine; Visit Provider Student in an Organized Health Care Education/Training Program | DX: L40.50 Arthropathic psoriasis, unspecified (principal); L40.9 Psoriasis, unspecified; Z79.899 Other long term (current) drug therapy | CPT/HCPCS: 99212 ==

== ENCOUNTER 2024-04-26 09:08 | Outpatient (REF) | payer MEDICARE, SELFPAY ==
[2024-04-26 13:26] LABS: MANUAL DIFF FLAG NO
[2024-04-26 13:43] LABS: Basophils Absolute Auto 0.1 X10*3/uL (0.0-0.2); Basophils Percent Auto 1.3 % (0-2); Eosinophils Absolute Auto 0.5 X10*3/uL (0.0-0.4); Eosinophils Percent Auto 7.9 % (0-4); Hematocrit 42.4 % (37.0-47.0); Hemoglobin 14.2 g/dl (12.0-16.0); Imm Gran Abs Auto 0.01 X10*3/uL (0.00-0.03); Imm Gran Pct Auto 0.2 % (0.0-0.4); Lymphocytes Absolute Auto 2.8 X10*3/uL (1.2-4.9); Lymphocytes Percent Auto 44.4 % (20-40); Mean Corpuscular HGB Conc 33.5 g/dl (31.0-35.0); Mean Corpuscular Hemoglobin 31.8 pg (27.0-33.0); Mean Corpuscular Volume 95.1 fL (80.0-98.0); Mean Platelet Volume 10.4 fL (9.4-12.3); Monocytes Absolute Auto 0.8 X10*3/uL (0.1-1.2); Monocytes Percent Auto 12.3 % (2-11); Neutrophils Absolute Auto 2.1 x10*3/uL (2.0-8.3); Neutrophils Percent Auto 33.9 % (45-73); Platelet Count 244 X10*3/uL (160-400); Red Blood Count 4.46 X10*6/uL (4.20-5.50); Red Cell Distribution Width 13.2 % (11.0-16.0); White Blood Count 6.2 X10*3/uL (4.8-10.8)
[2024-04-26 14:19] LABS: Alanine Aminotransferase 21 U/L (0-31); Albumin Level 3.9 g/dL (3.5-5.0); Alkaline Phosphatase 67 U/L (39-117); Anion Gap 11 (12-20); Aspartate Amino Transferase 30 U/L (5-31); Bilirubin Total 0.6 mg/dL (0.0-1.0); Blood Urea Nitrogen 23 mg/dL (9-16); C Reactive Protein < 0.10 mg/dL (< or = 0.50); Calcium 10.1 mg/dL (8.4-10.2); Carbon Dioxide 25 mmol/L (22-29); Chloride 108 mmol/L (96-108); Estimated Glomerular Filt Rate 56; Glucose Random 93 mg/dL (60-115); Potassium 4.3 mmol/L (3.3-5.1); Sodium 140 mmol/L (135-145); Total Protein 7.3 g/dL (6.5-8.0)
[2024-04-26 14:27] LABS: Erythrocyte Sedimentation Rate 11 MM/HR (0-20)
[2024-04-27 09:09] LABS: HBS Num1 0.83 mIU/mL (0-7.99); HBc Num1 0.16 S/CO (0.00-0.79); Hepatitis A Antibody IgM 0.15 Index (0-0.79); Hepatitis B Core Antibody Nonreactive (Nonreactive); Hepatitis B Surface Antigen Negative (Negative); ~HepC Num1 0.15 S/CO (0.00-0.79); ~Hepatitis A Antibody IgM Nonreactive (Nonreactive); ~Hepatitis B Surface Antibody NONREACTIVE (Nonreactive); ~Hepatitis C Antibody Nonreactive (Nonreactive)
== END 2024-04-26 09:09 | disposition home or self-care (01) ==
LOC: HO.HMGCLDS 09:08
PROVIDERS: PCP Internal Medicine; Visit Provider Student in an Organized Health Care Education/Training Program
DX: L40.50 Arthropathic psoriasis, unspecified (principal); Z79.899 Other long term (current) drug therapy; Z11.59 Encounter for screening for other viral diseases
CPT/HCPCS: 36415; 80053; 85025; 85652; 86140; 86481; 86704; 86706; 86709; 86803; 87340

== ENCOUNTER 2024-05-02 08:20 | Outpatient (AMB) | payer MEDICARE, SELFPAY ==
--- NOTE | 2024-05-02 08:38 | A.OFFVIS_ITS ---
Vital Signs 05/02/24 08:42 Height 5 ft 7 in Weight 191 lb 9.307 oz BMI 30.0 BP 150/80 H Blood Pressure Location Lt brachial Position Sitting Pulse 75 Pulse Source Pulse Oximeter Pulse Oximetry (%) 95 Oxygen Delivery Method Room Air Intake Visit Reasons: PsA/LM Intake Note: Patient presents for PsA. Allergies clavulanic acid [From Augmentin] Allergy (Mild, Verified 05/02/24 08:41) Stomach Upset rosuvastatin [From Crestor] Adverse Reaction (Intermediate, Verified 05/02/24 08:41) Muscle aches Medication List - Last Reconciled 05/02/24 by Batsheva Zhao MD acetaminophen (Tylenol Extra Strength) 1,000 mg PO Q6H PRN adalimumab (Humira) 40 mg (0.8 mL) subcut Q2W calcium carbonate-vitamin D3 600 mg-10 mcg (400 unit) (Calcium 600 + D(3)) 1 tab PO DAILY cyclobenzaprine 5 mg PO BEDTIME PRN folic acid 1 mg PO DAILY methotrexate sodium 12.5 mg (5 x 2.5 mg) PO QWEEK HPI Comments Details: 69-year-old female with psoriasis and psoriatic arthritis returns for follow-up. She remains on methotrexate 12.5 mg weekly and Humira 40 mg every other week. She states that she is doing reasonably well. She continues to have some aching and stiffness in her hands in the morning. Stiffness lasting 1-2 hours. No significant swelling. Denies any skin rashes. She states that she has some pain in her right big toe and some pain in her left 2nd toe. Her feet are achy especially at night. [facility] Medical History Psoriasis Psoriatic arthritis Surgical History Hx of removal of cyst H/O rotator cuff surgery Hx of hysterectomy Family History Father CVD (cardiovascular disease) Mother Cancer Sister Rheumatoid arthritis Social History Alcohol intake: never Patient Tobacco Use Status: Never used Tobacco Substance Use Type: Marijuana Review of Systems [facility] [place]ralgias, Denies joint swelling and Reports stiffness Skin/Breast Denies rash Physical Exam Vital Signs: Last Vital Signs Pulse 75 05/02/24 08:42 BP 150/80 H 05/02/24 08:42 Pulse Ox 95 05/02/24 08:42 Oxygen Delivery Method Room Air 05/02/24 08:42 BMI result Body Mass Index 30.0 Const General: cooperative, healthy appearing and comfortable Nutritional Appearance: obese Orientation/consciousness: patient oriented x3 Limitations: no limitations HEENT Head: Yes normocephalic and Yes atraumatic Mouth: moist mucous membranes Resp Effort & Inspection: normal respiratory effort and able to speak in complete sentences Auscultation: clear to auscultation bilaterally Cardio Rate: regular rate Rhythm: regular rhythm Skin Other: Very faint flaky rash behind her right ear Neuro General: patient oriented x3 Extrem Other: Mild osteoarthritic changes of both hands Subtle right wrist swelling, minimally tender No swelling or tenderness of her fingers or MCPs bilaterally No nail pitting Right foot bunion, slightly tender zone patient Right 2nd MTP tenderness Left 2nd MTP tenderness. No swollen joints both feet and ankles Normal nailfold capillaroscopy Assessment & Plan Assessment & Plan (1) Psoriatic arthritis: Comment: Humira: 05/2019- present Enbrel: 12/2018- 11/2019 active disease Methotrexate: 12/2018- present Code(s): L40.50 - Arthropathic psoriasis, unspecified Category: Medical Plan: This is a 69-year-old female with psoriasis and psoriatic arthritis who presents for follow-up. Doing very well overall on Humira 40 mg every other week and methotrexate 12.5 mg weekly. 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 Advised patient to get the RSV vaccine and Shingrix vaccination. Hold methotrexate for 2 doses after vaccination Plan I spent 25 minutes reviewing patient's chart, evaluating patient, ordering diagnostic workup, counseling patient and documenting in the chart Orders: Orders Complete Blood Count Auto Diff 4 Months L40.50 - Arthropathic psoriasis, unspecified, Z79.899 - Other senior living (current) drug therapy Comprehensive Met. Panel 4 Months L40.50 - Arthropathic psoriasis, unspecified, Z79.899 - Other senior living (current) drug therapy C Reactive Protein 4 Months L40.50 - Arthropathic psoriasis, unspecified, Z79.899 - Other senior living (current) drug therapy Erythrocyte Sedimentation Rate 4 Months L40.50 - Arthropathic psoriasis, unspecified, Z79.899 - Other terminal operations supervisor (current) drug therapy Medications: Refilled cyclobenzaprine 5 mg PO BEDTIME PRN 30 tabs 0RF for muscle spasm L40.50 - Arthropathic psoriasis, unspecified Coding Level of Care Code Est Pt Level 4 (32462) Complex EM visit Add On G2211 Diagnoses Psoriatic arthritis L40.50 Psoriasis L40.9 [facility] methotrexate user Z79.899 Immunization counseling Z71.85
[2024-05-02 08:42] VITALS: BP 150/80; PULSE 75; O2SAT 95
== END 2024-05-02 09:11 | disposition home or self-care (01) ==
PROVIDERS: PCP Internal Medicine; Visit Provider Student in an Organized Health Care Education/Training Program
DX: L40.50 Arthropathic psoriasis, unspecified (principal); L40.9 Psoriasis, unspecified; Z79.899 Other long term (current) drug therapy; Z71.85 Encounter for immunization safety counseling
CPT/HCPCS: 99214; G2211

== ENCOUNTER → 2024-05-02 08:20 | Outpatient (BNVA) | payer MEDICARE, SELFPAY | PROVIDERS: PCP Internal Medicine; Visit Provider Student in an Organized Health Care Education/Training Program | DX: L40.50 Arthropathic psoriasis, unspecified (principal); L40.9 Psoriasis, unspecified; Z79.631 Long term (current) use of antimetabolite agent; Z71.85 Encounter for immunization safety counseling | CPT/HCPCS: 99212 ==

== ENCOUNTER 2024-08-23 11:13 | Outpatient (REF) | payer MEDICARE, SELFPAY ==
[2024-08-23 13:23] LABS: MANUAL DIFF FLAG NO
[2024-08-23 13:29] LABS: Basophils Absolute Auto 0.1 X10*3/uL (0.0-0.2); Basophils Percent Auto 1.3 % (0-2); Eosinophils Absolute Auto 0.1 X10*3/uL (0.0-0.4); Eosinophils Percent Auto 2.1 % (0-4); Hematocrit 43.9 % (37.0-47.0); Hemoglobin 14.8 g/dl (12.0-16.0); Imm Gran Abs Auto 0.01 X10*3/uL (0.00-0.03); Imm Gran Pct Auto 0.2 % (0.0-0.4); Lymphocytes Percent Auto 47.4 % (20-40); Mean Corpuscular HGB Conc 33.7 g/dl (31.0-35.0); Mean Corpuscular Hemoglobin 31.7 pg (27.0-33.0); Mean Platelet Volume 9.7 fL (9.4-12.3); Monocytes Absolute Auto 0.8 X10*3/uL (0.1-1.2); Neutrophils Absolute Auto 2.3 x10*3/uL (2.0-8.3); Platelet Count 284 X10*3/uL (160-400); Red Blood Count 4.67 X10*6/uL (4.20-5.50); Red Cell Distribution Width 13.2 % (11.0-16.0); White Blood Count 6.3 X10*3/uL (4.8-10.8)
[2024-08-23 13:47] LABS: Alanine Aminotransferase 22 U/L (0-31); Albumin Level 4.1 g/dL (3.5-5.0); Alkaline Phosphatase 87 U/L (39-117); Anion Gap 11 (12-20); Aspartate Amino Transferase 28 U/L (5-31); Bilirubin Total 0.7 mg/dL (0.0-1.0); Blood Urea Nitrogen 20 mg/dL (9-16); C Reactive Protein < 0.10 mg/dL (< or = 0.50); Calcium 9.6 mg/dL (8.4-10.2); Carbon Dioxide 28 mmol/L (22-29); Chloride 107 mmol/L (96-108); Estimated Glomerular Filt Rate > 60; Glucose Random 95 mg/dL (60-115); Potassium 4.6 mmol/L (3.3-5.1); Sodium 141 mmol/L (135-145); Total Protein 8.1 g/dL (6.5-8.0)
--- OUTSIDE RECORDS SUMMARY | 2024-08-23 14:07 | XMS_ITS | Clinical Summary ---
Author Organization [address] [facility] Address [address] [place] [phone] Phone Care Team Providers [employer] Name Role Phone Tami Dineshvenita ELMORE Primary Care Provider [phone] Allergies Active Allergy Reactions Criticality Noted Date Comments Betamethasone 12/05/2022 Medications NON FORMULARY Adalimumab 20 MG/0.4ML Prefilled Syringe Kit- Inject 40 mg into the skin every 14 days. Active calcium carbonate-vitam in D 600 mg-10 mcg (400 unit) per tablet Take 1 tablet by mouth 2 (two) times a day. Active folic acid (FOLVITE) 1 mg tablet Take 1 tablet (1 mg total) by mouth 1 (one) time each day. 1 Active hydroCHLOROthia zide (HYDRODIURIL) 25 mg tablet Take 1 tablet (25 mg total) by mouth 1 (one) time each day in the morning. 1 Active methotrexate 2.5 mg tablet 5 tablets by mouth every week 1 Active rosuvastatin (CRESTOR) 5 mg tablet Take 1 tablet (5 mg total) by mouth 1 (one) time each day. 1 Active traMADoL (ULTRAM) 50 mg tablet Take 50 mg by mouth as needed. 1 Active Active Problems Problem Noted Date Diagnosed Date HTN (hypertension) 07/04/2021 Overview (07/07/2024): Last Assessment & Plan: Patient's blood pressure today is noted to be elevated. She reports she saw her PCP yesterday who ordered blood work in anticipation to increase her hydrochlorothiazide. We discussed this today. I did recommend we initiate an additional antihypertensive for better blood pressure control and she prefer to follow-up with her primary care provider given that they recently ordered blood work and she has a follow-up appointment with them this week. I recommended if she does not hear from her primary care provider regarding further instructions on her blood pressure medications, she reach out to our office. She will continue to monitor blood pressures at home. 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 Hyperlipidemia 06/25/2021 Overview (07/07/2024): Last Assessment & Plan: Patient has history of hyperlipidemia managed by her primary care provider. She continues on rosuvastatin as prescribed. I have reviewed with the patient the importance of a heart healthy lifestyle which includes eating a low-fat low-salt diet, getting regular exercise, maintaining a healthy weight, not smoking, and following up with routine medical care. LBBB (left bundle branch block) 06/25/2021 Overview (07/07/2024): Last Assessment & Plan: Patient has a history of left bundle branch block. Pharmacological nuclear stress test completed revealed no areas of ischemia or infarction. She also completed an echocardiogram which showed normal LVEF and no significant valvular disease. She continues to remain asymptomatic from a cardiac standpoint. Patient advised to seek emergency medical attention by calling 911 if they were to develop severe dyspnea, chest pain that did not resolve with rest or nitroglycerin, or if they were to faint. Abnormal mammogram of left breast 10/11/2018 Surgical History Surgery Date Site/Laterality Comments HYSTERECTOMY PROCEDURE: HISTORICAL HYSTERECTOMY OTHER SURGICAL HISTORY 2014 PROCEDURE: HISTORY OTHER; COMMENT: [place] Cyst Removed OTHER SURGICAL HISTORY PROCEDURE: HISTORY OTHER; COMMENT: Neuroma right foot- podiatry Medical History Medical History Date Comments Psoriatic arthritis (CMS/HCC) DX :Psoriatic arthritis (HCC) IGT (impaired glucose tolerance) DX:IGT (impaired glucose tolerance) H/O mammogram 08/2015 DX:H/O mammogram ; COMMENT: RT circumscribed masses, US probably benign. Family History Medical History Relation Name Comments Breast cancer Mother Colon cancer Mother Melanoma Son Relation Name Status Comments Father Mother Son Social History Tobacco Use Types Packs/Day Years Used Date Smoking Tobacco: Never Smokeless Tobacco: Never Alcohol Use Standard Drinks/Week Comments Not Currently 0 (1 standard drink = 0.6 oz pur e alcohol) Comments Unknown Sex and Gender Information Value Date Recorded Sex Assigned at Not on file Legal Sex Female 12:11 PM EST Gender Identity Not on file Sexual Orientation Not on file Obstetrics History Last Filed Vital Signs Vital Sign Reading Time Taken Comments Blood Pressure 146/90 12/10/2023 8:55 AM EDT Sit ting L Arm Pulse 75 12/10/2023 8:55 AM EDT Temperature - - Respiratory Rate - - Oxygen Saturation - - Inhaled Oxygen Concentration - - Weight 88.9 kg (196 lb) 12/10/2023 8:55 AM EDT Height 170.2 cm (5' 7 ) 12/10/2023 8:55 AM EDT Body Mass Index 30.7 12/10/2023 8:55 AM EDT Plan of Treatment Upcoming Encounters Date Type Department Care Team (Late st Contact Info) Description 10/27/2024 8:15 AM EDT [facility]ointment [facility] [address] [phone] 12/07/2024 9:50 AM EDT Office Visit [facility] [address] [place] [phone] Pepe Haines MD [address] [place] [address] [address] [place] [address] Health Maintenance Due Date Last Done Comments Pneumococcal Vaccine: 50+ Years (1 of 1 - PCV) 10/01/2003 Zoster Vaccines (1 of 2) 10/01/2003 Colorectal Cancer Screening: Colonoscopy 05/31/2022 Depression Screening 05/31/2022 Falls Risk Assessment 05/31/2022 Hepatitis C Screening 05/31/2022 Medicare Annual Wellness Visit 05/31/2022 Social Influencers of Health Screening 05/31/2022 Hypertension/CHF/CAD Annual BMP Blood Test 06/30/2025 06/30/2024 Breast Cancer Screening 10/25/2025 10/26/19 24, 10/23/2022, 10/21/2021, Additional history exists RSV Immunization Patients 60+ Years Old (1 - 1-dose 75+ series) 2028 Cholesterol Screening (Lipid Panel) 06/30/2029 06/30/2024 Osteoporosis Screening (Bone Density Screening) 02/05/2030 02/06/2020 DTaP,Tdap,and Td Vaccines (2 - Td or Tdap) 11/10/2033 11/11/2023 COVID-19 Vaccine Completed 05/06/2024, 07/2021, 01/23/2022, Additional history exists Influenza Vaccine Completed 05/06/2024, , 04/23/2022 HIB Vaccines Aged Out No longer eligi ble based on patient's age to complete this topic HPV Vaccines Aged Out No longer eligi ble based on patient's age to complete this topic Hepatitis A Vaccines Aged Out No long er eligible based on patient's age to complete this topic Hepatitis B Vaccines Aged Out No long er eligible based on patient's age to complete this topic IPV Vaccines Aged Out No longer eligi ble based on patient's age to complete this topic MMR Vaccines Aged Out No longer eligi ble based on patient's age to complete this topic Meningococcal ACWY Vaccine Aged Out N o longer eligible based on patient's age to complete this topic Meningococcal B Vacine Aged Out No lo nger eligible based on patient's age to complete this topic RSV Immunization Patients Under 20 months Aged Out No longer eligible based on patient's age to complete this topic Varicella Vaccines Aged Out No longer eligible based on patient's age to complete this topic Procedures Procedure Name Priority Date/Time Associated Diagnosis Comments CBC WITH AUTO DIFFERENTIAL Routine 06/30/2024 10:09 AM EST Routine general medical examination at a health care facility Impaired fasting glucose Screening for ischemic heart disease Hypertension Screening for thyroid disorder HEMOGLOBIN A1C Routine 06/30/2024 10:09 AM EST Routine general medical examination at a health care facility Impaired fasting glucose Screening for ischemic heart disease Hypertension Screening for thyroid disorder CBC AND DIFFERENTIAL Routine 06/30/2024 10:09 AM EST Routine general medical examination at a health care facility Impaired fasting glucose Screening for ischemic heart disease Hypertension Screening for thyroid disorder THYROID STIMULATING HORMONE Routine 06/30/2024 10:09 AM EST Routine general medical examination at a health care facility Impaired fasting glucose Screening for ischemic heart disease Hypertension Screening for thyroid disorder BASIC METABOLIC PANEL Routine 06/30/2024 10:09 AM EST Routine general medical examination at a health care facility Impaired fasting glucose Screening for ischemic heart disease Hypertension Screening for thyroid disorder CREATINE KINASE Routine 06/30/2024 10:09 AM EST Routine general medical examination at a health care facility Impaired fasting glucose Screening for ischemic heart disease Hypertension Screening for thyroid disorder ALANINE AMINOTRANSFERASE Routine 025 10:09 AM EST Routine general medical examination at a health care facility Impaired fasting glucose Screening for ischemic heart disease Hypertension Screening for thyroid disorder ASPARTATE AMINOTRANSFERASE Routine 06/30/2024 10:09 AM EST Routine general medical examination at a health care facility Impaired fasting glucose Screening for ischemic heart disease Hypertension Screening for thyroid disorder LIPID PANEL WITH REFLEX TO DIRECT LDL Routine 06/30/2024 10:09 AM EST Routine general medical examination at a health care facility Impaired fasting glucose Screening for ischemic heart disease Hypertension Screening for thyroid disorder MIKE SCREENING DIGITAL Routine 10/26/2023 9:37 AM EDT Encounter for screening mammogram for malignant neoplasm of breast [facility] DEXA AXIAL SKELETON Routine 02/06/20 2:20 PM EDT Encounter for screening for osteoporosis from Last 3 Months or Most Recently Relevant to Health Maintenance Results * (ABNORMAL) Lipid panel with reflex to direct LDL (06/30/2024 10:09 AM EST) [facility] Cholesterol 202(H) 0 - 200 mg/dL LAB CHEMISTRY METHOD 06/30/2024 12:42 PM EST [facility] Triglycerides 114 0 - 150 mg/dL LAB CHEMISTRY METHOD 06/30/2024 12:42 PM EST [facility] HDL 82 >=40 mg/dL LAB CHEMISTRY METHOD 06/30/2024 12:42 PM EST [facility] LDL Calculated 97 0 - 100 mg/dL LAB CHEMISTRY METHOD 06/30/2024 12:42 PM [facility] VLDL Cholesterol Dwayne 22.8 mg/dL LAB CHEMISTRY METHOD 06/30/2024 12:42 PM [facility] Non HDL Chol. (LDL+VLDL) 120 <145 mg/dL LAB CHEMISTRY METHOD 06/30/2024 12:42 PM [facility] Chol/HDL Ratio 2.5 0.0 - 4.4 LAB CHEMISTRY METHOD 06/30/2024 12:42 PM [facility] Blood Venous blood specimen / Unknown Venipuncture / Unknown 06/30/2024 10:09 AM EST 06/30/2024 10:09 AM EST us Curtis Gonzáles MARITIME ENGINEER LAB BLOOD ORDERABLES Final Resul t [facility] [address] [place] [address], * CBC auto differential (06/30/2024 10:09 AM EST) WBC 6.9 4.8 - 10.8 K/mcL LAB HEMETOLOGY METHOD 06/30/2024 11:31 AM [facility] RBC 4.30 3.80 - 4.80 M/mcL LAB HEMETOLOGY METHOD 06/30/2024 11:31 AM [facility] Hemoglobin 13.8 11.5 - 16.0 g/dL LAB HEMETOLOGY METHOD 06/30/2024 11:31 AM [facility] Hematocrit 40.7 35.0 - 47.0 % LAB HEMETOLOGY METHOD 06/30/2024 11:31 AM [facility] MCV 94.4 79.0 - 98.0 FL LAB HEMETOLOGY METHOD 06/30/2024 11:31 AM [facility] MCH 32.0 27.0 - 32.0 pcg LAB HEMETOLOGY METHOD 06/30/2024 11:31 AM [facility] MCHC 33.9 32.0 - 37.0 g/dL LAB HEMETOLOGY METHOD 06/30/2024 11:31 AM [facility] RDW 12.8 11.0 - 15.0 % LAB HEMETOLOGY METHOD 06/30/2024 11:31 AM [facility] Platelets 256 130 - 400 K/mcL LAB HEMETOLOGY METHOD 06/30/2024 11:31 AM [facility] MPV 9.7 7.0 - 11.0 FL LAB HEMETOLOGY METHOD 06/30/2024 11:31 AM [facility] NRBC 0.0 <1.0 % LAB HEMETOLOGY METHOD 06/30/2024 11:31 AM [facility] NRBC Absolute 0.00 <0.10 K/mcL LAB HEMETOLOGY METHOD 06/30/2024 11:31 AM [facility] Neutrophils Relative 32.6 % LAB HEMETOLOGY METHOD 06/30/2024 11:31 AM [facility] Lymphocytes Relative 47.1 % LAB HEMETOLOGY METHOD 06/30/2024 11:31 AM [facility] Monocytes Relative 14.4 % LAB HEMETOLOGY METHOD 06/30/2024 11:31 AM [facility] Eosinophils Relative 4.5 % LAB HEMETOLOGY METHOD 06/30/2024 11:31 AM [facility] Basophils Relative 1.3 % LAB HEMETOLOGY METHOD 06/30/2024 11:31 AM [facility] Immature Granulocytes Relative 0.1 % LAB HEMETOLOGY METHOD 06/30/2024 11:31 AM [facility] Neutrophils Absolute 2.24 1.50 - 7.00 K/mcL LAB HEMETOLOGY METHOD 06/30/2024 11:31 AM EST [facility] Lymphocytes Absolute 3.24 1.00 - 5.00 K/mcL LAB HEMETOLOGY METHOD 06/30/2024 11:31 AM [facility] Monocytes Absolute 0.99 0.20 - 1.00 K/mcL LAB HEMETOLOGY METHOD 06/30/2024 11:31 AM [facility] Eosinophils Absolute 0.31 0.00 - 0.50 K/mcL LAB HEMETOLOGY METHOD 06/30/2024 11:31 AM [facility] Basophils Absolute 0.09 0.00 - 0.20 K/mcL LAB HEMETOLOGY METHOD 06/30/2024 11:31 AM [facility] Immature Granulocytes Absolute 0.01 0.00 - 0.03 K/mcL LAB HEMETOLOGY METHOD 06/30/2024 11:31 AM [facility] Blood Venous blood specimen / Unknown Venipuncture / Unknown 06/30/2024 10:09 AM EST 06/30/2024 10:09 AM EST us Curtis Gonzáles MARITIME ENGINEER LAB BLOOD ORDERABLES Final Resul t [facility] [address] [place] [address], [place] [phone] * Alanine aminotransferase (06/30/2024 10:09 AM EST) ALT (SGPT) 21 10 - 60 unit/L LAB CHEMISTRY METHOD 06/30/2024 12:42 PM EST [facility] Blood Venous blood specimen / Unknown Venipuncture / Unknown 06/30/2024 10:09 AM EST 06/30/2024 10:09 AM EST us Curtis Gonzáles MARITIME ENGINEER LAB BLOOD ORDERABLES Final Resul t [facility] [address] [place] [address], [place] [phone] * Aspartate aminotransferase (06/30/2024 10:09 AM EST) Pathologist [facility] [place] AST (SGOT) 16 10 - 42 unit/L LAB CHEMISTRY METHOD 06/30/2024 12:32 PM [facility] Blood Venous blood specimen / Unknown Venipuncture / Unknown 06/30/2024 10:09 AM EST 06/30/2024 10:09 AM EST [facility] MARITIME ENGINEER LAB BLOOD ORDERABLES Final Resul t [facility] [address] [place] [address], * Thyroid stimulating hormone (06/30/2024 10:09 AM EST) Pathologist [facility] [place] TSH 1.57 0.40 - 4.00 mcIU/mL LAB CHEMISTRY METHOD 06/30/2024 12:32 PM [facility] Blood Venous blood specimen / Unknown Venipuncture / Unknown 06/30/2024 10:09 AM EST 06/30/2024 10:09 AM EST Curtis Gonzáles MARITIME ENGINEER LAB BLOOD ORDERABLES Final Resul t [facility] [address] [place] [address], * Hemoglobin A1c (06/30/2024 10:09 AM EST) Pathologist [facility] [place] Hemoglobin A1C 5.4 <6.5 % LAB CHEMISTRY METHOD 06/30/2024 1:53 PM [facility] Mean Bld Glu Estim. 108 mg/dL LAB CHEMISTRY METHOD 06/30/2024 1:53 PM [facility] Blood Venous blood specimen / Unknown Venipuncture / Unknown 06/30/2024 10:09 AM EST 06/30/2024 10:09 AM EST us Curtis Gonzáles MARITIME ENGINEER LAB BLOOD ORDERABLES Final Resul t Performing Organization Address City/[facility] [address]/ZIP Co de Phone Number [facility] [address] [place] [address], [place] [phone] * Creatine kinase (06/30/2024 10:09 AM EST) Total CK 85 22 - 269 unit/L LAB CHEMISTRY METHOD 06/30/2024 12:42 PM [facility] Blood Venous blood specimen / Unknown Venipuncture / Unknown 06/30/2024 10:09 AM EST 06/30/2024 10:09 AM EST us Curtis Gonzáles MARITIME ENGINEER LAB BLOOD ORDERABLES Final Resul t Performing Organization Address [facility] [address]/ZIP Co de Phone Number [facility] [address] [place] [address], [place] [phone] * Basic metabolic panel (06/30/2024 10:09 AM EST) Pathologist [facility] [place] Sodium 138 133 - 145 mmol/L LAB CHEMISTRY METHOD 06/30/2024 12:42 PM [facility] Potassium 4.2 3.5 - 5.5 mmol/L LAB CHEMISTRY METHOD 06/30/2024 12:42 PM [facility] Chloride 106 96 - 110 mmol/L LAB CHEMISTRY METHOD 06/30/2024 12:42 PM [facility] CO2 27 21 - 32 mmol/L LAB CHEMISTRY METHOD 06/30/2024 12:42 PM [facility] Anion Gap 5 3 - 11 LAB CHEMISTRY METHOD 06/30/2024 12:42 PM [facility] Glucose 82 70 - 100 mg/dL LAB CHEMISTRY METHOD 06/30/2024 12:42 PM [facility] BUN 24 5 - 25 mg/dL LAB CHEMISTRY METHOD 06/30/2024 12:42 PM EST [facility] Creatinine 0.96 0.50 - 1.10 mg/dL LAB CHEMISTRY METHOD 06/30/2024 12:42 PM EST [facility] eGFR 64 >=60 mL/min/1. 73m2 LAB CHEMISTRY METHOD 06/30/2024 12:42 PM EST [facility] Comment:Calculation based on the??Chronic Kidney Disease Epidemiology Collaboration (CKD-EPI) equation refit??without adjustment for race. BUN/Creatinine Ratio 25.0 LAB CHEMISTRY METHOD 06/30/2024 12:42 PM [facility] Calcium 9.7 8.5 - 10.5 mg/dL LAB CHEMISTRY METHOD 06/30/2024 12:42 PM [facility] Blood Venous blood specimen / Unknown Venipuncture / Unknown 06/30/2024 10:09 AM EST 06/30/2024 10:09 AM EST us Curtis Gonzáles MARITIME ENGINEER LAB BLOOD ORDERABLES Final Resul t [facility] [address] [place] [address], * MIKE SCREENING DIGITAL (10/26/2023 9:37 AM EDT) Anatomical Region Laterality Modality Mammography 10/26/2023 7:41 AM EDT Narrative 10/26/2023 9:37 AM EDT [facility] Diagnostic Imaging Department [address] [place] [address] Patient: ??MARTA ARNDT ?/Age/Sex: 1955 - 68 - F Unit#: ??[id number] ? Location/Status: ??SPDIMAM/REG CLI ? Mnemonic/Ordering Site: ??DIGSC/SPMAM Ordering Physician: ??DINESH OVIEDO MD [facility] Screening Digital - 10/26/23 - 800 Report Status:Signed EXAM: [facility] Screening Digital EXAM DATE AND TIME: 10/26/2023 8:02 AM HISTORY: ??Screening. Mother had breast carcinoma at age 80. COMPARISON: ??10/23/22, 10/21/21, 10/19/20 TECHNIQUE: Bilateral digital breast tomosynthesis was performed in the CC and MLO projections. Computer aided detection with [employer] 3D 3.1 was employed. TISSUE DENSITY: a. The breasts are almost entirely fatty. FINDINGS: No suspicious masses, grouped microcalcifications, or areas of architectural distortion are seen. The skin and vascularity are unremarkable. IMPRESSION: Stable mammographic appearance of the breasts. ??No evidence of malignancy is seen. A negative mammogram in the presence of a clinically suspicious palpable abnormality does not preclude the possibility of malignancy or alter the indications for biopsy. BI-RADS: ??Category 1: Negative RECOMMENDATION(S): 1: Routine screening mammogram BILATERAL in 1 year. Dictating Physician: ??LILIAN RODRIGUEZ MD Electronically Signed by: ??LILIAN RODRIGUEZ MD Dic Date/Time: ??10/26/23935 Sign date/Time: ??10/26/23936 Procedure Note Lilian Rodriguez MD - 02/08/2024 [facility] Diagnostic Imaging Department [address] [place], [place] [id number] Patient: MARTA ARNDT /Age/Sex: 1955 - 68 - F Unit#: [id number] Location/Status: SPDIMAM/REG CLI Mnemonic/Ordering Site: [facility] Ordering Physician: DINESH OVIEDO MD [facility] Screening Digital - 10/26/23 - 08 Report Status:Signed EXAM: [facility] Screening Digital EXAM DATE AND TIME: 10/26/2023 8:02 AM HISTORY: Screening. Mother had breast carcinoma at age 80. COMPARISON: 10/23/22, 10/21/21, 10/19/20 TECHNIQUE: Bilateral digital breast tomosynthesis was performed in the CCand MLO projections. Computer aided detection with [employer] 3D 3.1was employed. TISSUE DENSITY: a. The breasts are almost entirely fatty. FINDINGS: No suspicious masses, grouped microcalcifications, or areas ofarchitectural distortion are seen. The skin and vascularity are unremarkable. IMPRESSION: Stable mammographic appearance of the breasts. No evidence of malignancyis seen. A negative mammogram in the presence of a clinically suspicious palpable abnormality does not preclude the possibility of malignancy or alter the indications for biopsy. BI-RADS: Category 1: Negative RECOMMENDATION(S): 1: Routine screening mammogram BILATERAL in 1 year. Dictating Physician: LILIAN RODRIGUEZ MD Electronically Signed by: LILIAN RODRIGUEZ MD Dic Date/Time: 10/26/2336 Sign date/Time: 10/26/23936 us Dinesh Oviedo DO IMG BI PROCEDURES Final Resul t * MIKE DEXA AXIAL SKELETON (02/06/2020 2:20 PM EDT) Anatomical Region Laterality Modality Mammography 02/06/2020 12:4 1 PM EDT Narrative 02/06/2020 2:20 PM EDT [facility] Diagnostic Imaging Department [address] [place] [address] Patient: ??MARTA ARNDT ?/Age/Sex: 1955 - 64 - F Unit#: ??[id number] ? Location/Status: ??SPDIMAM/REG CLI ? Mnemonic/Ordering Site: ??MAMDEXAAX/SPMAM Ordering Physician: ??DINESH OVIEDO MD [facility] Dexa Axial Skeleton - 02/06/20 - 1321 HISTORY: ??The patient is a 64-year-old postmenopausal female with clinical concern for metabolic bone disease. FINDINGS: ??Dual energy x-ray absorptiometry of the lumbar spine and femurs is performed. The mean bone mineral density at L1-L4 is 1.017 gm/cm2 which is 86% of that of young normals and 91% of that of age matched controls. This yields a T-score of -1.4 and a Z-score of -0.8 which is diagnostic of osteopenia. The mean bone mineral density of the femurs bilaterally is 1.031 gm/cm2 which is 102% of that of young normals and 109% of that of age matched controls. ??This yields a T-score of 0.2 and a Z-score of 0.7 and there is therefore no evidence of osteoporosis or osteopenia here. ??However, the T-score of the right femoral neck -1.5 which is diagnostic of osteopenia. IMPRESSION: 1. Osteopenia. 2. FRAX analysis yields a 10-year probability of major osteoporotic fracture of 8.4% and a 10-year probability of hip fracture of 0.9%. Code 88794 Dictating Physician: ??ZULEMA GALICIA MD Electronically Signed by: ??ZULEMA GALICIA MD Dic Date/Time: ??02/06/20 1419 Sign date/Time: ??02/06/20 1420 Procedure Note Zulema Galicia MD - 06/11/2022 [facility] Diagnostic Imaging Department [address] [place] [address] Patient: MARTA ARNDT Jessica /Age/Sex: 1955 - 64 - F Unit#: [id number] [facility] Mnemonic/Ordering Site: [facility] Ordering Physician: DINESH OVIEDO MD [facility] Dexa Axial Skeleton - 02/06/20 - 1321 HISTORY: The patient is a 64-year-old postmenopausal female withclinical concern for metabolic bone disease. FINDINGS: Dual energy x-ray absorptiometry of the lumbar spine and femursis performed. The mean bone mineral density at L1-L4 is 1.017 gm/cm2 which is86% of that of young normals and 91% of that of age matched controls. Thisyields a T-score of -1.4 and a Z-score of -0.8 which is diagnostic of osteopenia. The mean bone mineral density of the femurs bilaterally is 1.031 gm/uy4uykog is 102% of that of young normals and 109% of that of age matched controls.This yields a T-score of 0.2 and a Z-score of 0.7 and there is therefore noevidence of osteoporosis or osteopenia here. However, the T-score of the rightfemoral neck -1.5 which is diagnostic of osteopenia. IMPRESSION: 1. Osteopenia. 2. FRAX analysis yields a 10-year probability of major osteoporoticfracture of 8.4% and a 10-year probability of hip fracture of 0.9%. Code 33550 Dictating Physician: ZULEMA GALICIA MD Electronically Signed by: ZULEMA GALICIA MD Dic Date/Time: 02/06/20 141 Sign date/Time: 02/06/20 142 Dinesh Oviedo DO [facility] [place]EDURES Final Resul t from Last 3 Months or Most Recently Relevant to Health Maintenance Insurance [employer] MEDICARE Care Teams [employer] Relationship Specialty Start Date End Date Dinesh Oviedo DO [address] [place] [phone] PCP - General Internal Medicine 04/02/21
[2024-08-23 14:13] LABS: Erythrocyte Sedimentation Rate 11 MM/HR (0-20)
[2024-08-26 11:49] LABS: TS Negative Control Passed; TS Panel A 1; TS Panel B 0; TS Positive Control Passed; TSpotTB Negative (Negative)
== END 2024-08-23 11:14 | disposition home or self-care (01) ==
LOC: HO.HMGCLDS 11:13
PROVIDERS: PCP Internal Medicine; Visit Provider Student in an Organized Health Care Education/Training Program
DX: L40.50 Arthropathic psoriasis, unspecified (principal); Z11.7 Encounter for testing for latent tuberculosis infection; Z79.899 Other long term (current) drug therapy
CPT/HCPCS: 36415; 80053; 85025; 85652; 86140; 86481

== ENCOUNTER 2024-08-31 08:36 | Outpatient (AMB) | payer MEDICARE, SELFPAY ==
--- NOTE | 2024-08-31 08:47 | MHC.OFFVIS ---
Vital Signs 08/31/24 08:51 Height 5 ft 7 in Weight 195 lb 5.273 oz BMI 30.6 BP 140/80 H Blood Pressure Location Lt brachial Position Sitting Pulse 71 Pulse Source Pulse Oximeter Pulse Oximetry (%) 96 Oxygen Delivery Method Room Air Intake Visit Reasons: PSA Intake Note: Patient presents for PsA. Allergies clavulanic acid [From Augmentin] Allergy (Mild, Verified 08/31/24 08:50) Stomach Upset rosuvastatin [From Crestor] Adverse Reaction (Intermediate, Verified 08/31/24 08:50) Muscle aches Medication List - Last Reconciled 08/31/24 by Lory Carpio MD acetaminophen (Tylenol Extra Strength) 1,000 mg PO Q6H PRN adalimumab (Humira) 40 mg (0.8 mL) subcut Q2W calcium carbonate-vitamin D3 600 mg-10 mcg (400 unit) (Calcium 600 + D(3)) 1 tab PO DAILY cyclobenzaprine 5 mg PO BEDTIME PRN folic acid 1 mg PO DAILY methotrexate sodium 12.5 mg (5 x 2.5 mg) PO QWEEK HPI Comments Details: Patient is a 68-year-old female with psoriasis and psoriatic arthritis here today for follow up Interval History: Patient last seen 05/02/[address] Zhao. At that time she was on methotrexate 12.5 mg weekly and Humira 40 mg every other week. She reported that time that she was doing reasonably well noting some aching and stiffness in her hands in the morning lasting about 1-2 hours without swelling. Doing okay today Hands give her the most problem but she is able to run them under hot water and this helps Rheumatologic History: Psoriatic arthritis/Psoriasis Ddx 2019 Methotrexate: 12/2018- present Enbrel: 12/2018- 11/2019 active disease Humira: 05/2019- present Current Rheumatology Medication(s): Methotrexate 12.5 mg every week Folic acid 1 mg every day Humira 40 mg every 2 weeks PFSH Medical History Psoriasis Psoriatic arthritis Surgical History Hx of removal of cyst H/O rotator cuff surgery Hx of hysterectomy Family History Father CVD (cardiovascular disease) Mother Cancer Sister Rheumatoid arthritis Social History Alcohol intake: never Patient Tobacco Use Status: Never used Tobacco Substance Use Type: Marijuana Review of Systems Const Details: Review of Systems Constitutional: Denies fever, chills, weight loss ENT: Denies vision changes, eye pain or eye redness, dental caries, dry mouth GI: Denies nausea, vomiting, diarrhea, abdominal pain, change in BM Pulm: Denies SOB, GOODMAN, hemoptysis, wheezing Cards: Denies chest pain, palpitations Skin: Denies Raynaud's, rash, nail changes, photosensitivity, MAGAZINE WORKER: Denies headaches, weakness, paresthesias, recurrent falls MSK: as per HPI All other systems reviewed and are unremarkable except noted above Physical Exam Vital Signs: Last Vital Signs Pulse 71 08/31/24 08:51 BP 140/80 H 08/31/24 08:51 Pulse Ox 96 08/31/24 08:51 Oxygen Delivery Method Room Air 08/31/24 08:51 BMI result Body Mass Index 30.6 Vital signs reviewed Physical Examination CONSTITUITIONAL Patient alert and cooperative. Well appearing and in no apparent painful distress HEENT Conjunctiva and sclera clear. ?Pupils equal round and reactive to light. ?No lymphadenopathy. ? CHEST/RESPIRATORY SYSTEM Normal respiratory effort and able to speak in complete sentences. ?Clear to auscultation bilaterally. ?No crackles, rales, rhonchi, wheezes heard. CARDIAC SYSTEM Regular rate and rhythm. ?S1 and S2 heard no murmurs. ?Radial pulses intact bilaterally MSK Hands: ?Good supervisor composing room strength bilaterally. No deformities noted. ?Herbeden's nodes noted throughout. 3rd PCP mild swelling with TTP Wrists: ?Full range of motion at the wrists without pain. ?No tenderness to palpation or synovitis noted to the wrists. Elbows: Full range of motion without pain. No tenderness, weakness, swelling, increased warmth or erythema. Shoulders: Full range of motion without pain. No tenderness, weakness, swelling, increased warmth or erythema. Hips: Full range of motion without pain. Hip bursa: No tenderness to palpation Knees: ?Full range of motion. ?No tenderness, swelling, increased warmth or erythema.?Crepitations palpated bilaterally Ankles: Full range of motion. ?No tenderness, swelling, increased warmth or erythema.? Feet: ?Negative squeeze test. ?No tenderness to palpation or swelling of the MTPs. Tender points:?No tenderness to palpation of the bilateral trapezius, supraspinatus, greater trochanters, anterior costochondral junctions, bilateral gluteal areas, bilateral suboccipital muscle insertions SKIN Skin intact without rashes. Results Reviewed Results Reviewed: Laboratory Tests 08/23/24 11:17 WBC 6.3 RBC 4.67 Hgb 14.8 Hct 43.9 Plt Count 284 ESR 11 Sodium 141 Potassium 4.6 Chloride 107 Carbon Dioxide 28 BUN 20 H Creatinine 0.91 AST 28 ALT 22 Alkaline Phosphatase 87 C-Reactive Protein < 0.10 Total Protein 8.1 H Immunology labs 12/28/18 15:20 Rheumatoid Factor < 15.0 Cycl Citrul Peptide IgG <16 [place] Screen Negative Infectious serologies 04/26/24 08/23/24 09:38 11:17 Hepatitis A IgM Ab Nonreactive Hep Bs Antigen Negative Hep Bs Antibody NONREACTIVE Hep B Core Total Ab Nonreactive Hepatitis C Ab (EIA) Nonreactive TB Test (T-Spot) Com Negative Assessment & Plan Assessment & Plan (1) Psoriatic arthritis: Comment: Humira: 05/2019- present Enbrel: 12/2018- 11/2019 active disease Methotrexate: 12/2018- present Code(s): L40.50 - Arthropathic psoriasis, unspecified Category: Medical Plan: #PsA Patient is a 68-year-old female with psoriasis complicated by psoriatic arthritis currently in low disease activity/remission on Humira and methotrexate Plan - Humira 40mg SC every other week - Methotrexate 12.5mg PO weekly - Folic acid 1mg daily - RTC 4 months - Labs before visit: CBC, CMP, ESR, CRP, hepatitis panel, T spot (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 Limit alcohol and avoid Bactrim ? Monitoring: ?CBC, BMP, LFTs every 3-4 months and hepatitis serologies as needed (3) Encounter for monitoring of adalimumab therapy: Code(s): Z51.81 - Encounter for therapeutic drug level monitoring; Z79.620 - intermediate school teacher (current) use of immunosuppressive biologic Plan: #Long-term Use of TNF Inhibitors: Humira Discussed with the patient the benefits and risks of TNF inhibitors for the management of the rheumatic condition Benefits include reduce pain, maintenance of remission and reduction of flares as well as ?progression of the disease Risks include injection sites/infusion reactions, serious infections (such as bacterial infections, opportunistic infections), malignancy, delaminating syndromes, autoimmune phenomena, CHF exacerbations, palmar plantar psoriasis and cytopenias Recommended rotating injection sites, and holding medication during and for up to 1 week after resolution of a febrile illness or open skin wound Plan I spent 30 minutes reviewing the record and labs, taking a history, examining the patient, discussing the treatment plan, ordering diagnostic work up and documenting in the medical record Orders: Orders C Reactive Protein 4 Months L40.50 - Arthropathic psoriasis, unspecified Erythrocyte Sedimentation Rate 4 Months L40.50 - Arthropathic psoriasis, unspecified Hepatitis A,B,C Profile 4 Months L40.50 - Arthropathic psoriasis, unspecified HLA B27 4 Months L40.50 - Arthropathic psoriasis, unspecified Complete Blood Count Auto Diff 4 Months L40.50 - Arthropathic psoriasis, unspecified Comprehensive Met. Panel 4 Months L40.50 - Arthropathic psoriasis, unspecified T Spot TB 4 Months L40.50 - Arthropathic psoriasis, unspecified Coding Level of Care Code Est Pt Level 4 (32854) Complex EM visit Add On G2211 Diagnoses Psoriatic arthritis L40.50 retirement methotrexate user Z79.899 Encounter for monitoring of adalimumab therapy Z51.81; Z79.620
[2024-08-31 08:51] VITALS: BP 140/80; PULSE 71; O2SAT 96; BMI 30.6
--- OUTSIDE RECORDS SUMMARY | 2024-08-31 09:08 | XMS_ITS | Clinical Summary ---
Author Organization [address] [facility] Address [address] [place] [phone] Phone Care Team Providers Care Ticket Sales Agent Name Role Phone Tami Dineshvenita ELMORE Primary Care Provider [phone] Allergies Active Allergy Reactions Criticality Noted Date [...] AM EDT Appointment [facility] [address] [phone] 12/07/2024 9:50 AM EDT Office Visit [facility] [address] [place] [phone] Pepe Haines MD [address] [place] [address] [address] [place] [address] Health Maintenance Due Date Last Done Comments [...] screening mammogram for malignant neoplasm of breast [facility] DEXA AXIAL SKELETON Routine 02/06/20 2:20 PM EDT Encounter for screening for osteoporosis from Last 3 Months or Most Recently Relevant to Health Maintenance Results * (ABNORMAL) Lipid panel with reflex to direct LDL (06/30/2024 10:09 AM EST) [facility] Cholesterol 202(H) 0 - 200 mg/dL LAB CHEMISTRY METHOD 06/30/2024 12:42 PM EST [facility] Triglycerides 114 0 - 150 mg/dL LAB CHEMISTRY METHOD 06/30/2024 12:42 PM EST [facility] HDL 82 >=40 mg/dL LAB CHEMISTRY METHOD 06/30/2024 12:42 PM EST [facility] LDL Calculated 97 0 - 100 mg/dL LAB CHEMISTRY METHOD 06/30/2024 12:42 PM [facility] VLDL Cholesterol Dwayne 22.8 mg/dL LAB CHEMISTRY METHOD 06/30/2024 12:42 PM [facility] Non HDL Chol. (LDL+VLDL) 120 <145 mg/dL LAB CHEMISTRY METHOD 06/30/2024 12:42 PM [facility] Chol/HDL Ratio 2.5 0.0 - 4.4 LAB CHEMISTRY METHOD 06/30/2024 12:42 PM [facility] Blood Venous blood specimen / Unknown Venipuncture / Unknown 06/30/2024 10:09 AM EST 06/30/2024 10:09 AM EST us Curtis Gonzáles FINANCIAL PROJECT MANAGER LAB BLOOD ORDERABLES Final Resul t [facility] [address] [place] [address], * CBC auto differential (06/30/2024 10:09 AM EST) WBC 6.9 4.8 - 10.8 K/mcL LAB HEMETOLOGY METHOD 06/30/2024 11:31 AM [facility] RBC 4.30 3.80 - 4.80 M/mcL LAB HEMETOLOGY METHOD 06/30/2024 11:31 AM [facility] Hemoglobin 13.8 11.5 - 16.0 g/dL LAB HEMETOLOGY METHOD 06/30/2024 11:31 AM [facility] Hematocrit 40.7 35.0 - 47.0 % LAB HEMETOLOGY METHOD 06/30/2024 11:31 AM [facility] MCV 94.4 79.0 - 98.0 FL LAB HEMETOLOGY METHOD 06/30/2024 11:31 AM [facility] MCH 32.0 27.0 - 32.0 pcg LAB HEMETOLOGY METHOD 06/30/2024 11:31 AM [facility] MCHC 33.9 32.0 - 37.0 g/dL LAB HEMETOLOGY METHOD 06/30/2024 11:31 AM [facility] RDW 12.8 11.0 - 15.0 % LAB HEMETOLOGY METHOD 06/30/2024 11:31 AM [facility] Platelets 256 130 - 400 K/mcL LAB HEMETOLOGY METHOD 06/30/2024 11:31 AM [facility] MPV 9.7 7.0 - 11.0 FL LAB HEMETOLOGY METHOD 06/30/2024 11:31 AM [facility] NRBC 0.0 <1.0 % LAB HEMETOLOGY METHOD 06/30/2024 11:31 AM [facility] NRBC Absolute 0.00 <0.10 K/mcL LAB HEMETOLOGY METHOD 06/30/2024 11:31 AM [facility] Neutrophils Relative 32.6 % LAB HEMETOLOGY METHOD 06/30/2024 11:31 AM [facility] Lymphocytes Relative 47.1 % LAB HEMETOLOGY METHOD 06/30/2024 11:31 AM [facility] Monocytes Relative 14.4 % LAB HEMETOLOGY METHOD 06/30/2024 11:31 AM [facility] Eosinophils Relative 4.5 % LAB HEMETOLOGY METHOD 06/30/2024 11:31 AM [facility] Basophils Relative 1.3 % LAB HEMETOLOGY METHOD 06/30/2024 11:31 AM [facility] Immature Granulocytes Relative 0.1 % LAB HEMETOLOGY METHOD 06/30/2024 11:31 AM [facility] Neutrophils Absolute 2.24 1.50 - 7.00 K/mcL LAB HEMETOLOGY METHOD 06/30/2024 11:31 AM EST [facility] Lymphocytes Absolute 3.24 1.00 - 5.00 K/mcL LAB HEMETOLOGY METHOD 06/30/2024 11:31 AM [facility] Monocytes Absolute 0.99 0.20 - 1.00 K/mcL LAB HEMETOLOGY METHOD 06/30/2024 11:31 AM [facility] Eosinophils Absolute 0.31 0.00 - 0.50 K/mcL LAB HEMETOLOGY METHOD 06/30/2024 11:31 AM [facility] Basophils Absolute 0.09 0.00 - 0.20 K/mcL LAB HEMETOLOGY METHOD 06/30/2024 11:31 AM [facility] Immature Granulocytes Absolute 0.01 0.00 - 0.03 K/mcL LAB HEMETOLOGY METHOD 06/30/2024 11:31 AM [facility] Blood Venous blood specimen / Unknown Venipuncture / Unknown 06/30/2024 10:09 AM EST 06/30/2024 10:09 AM EST us Curtis Gonzáles FINANCIAL PROJECT MANAGER LAB BLOOD ORDERABLES Final Resul t [facility] [address] [place] [address], [place] [phone] * Alanine aminotransferase (06/30/2024 10:09 AM EST) ALT (SGPT) 21 10 - 60 unit/L LAB CHEMISTRY METHOD 06/30/2024 12:42 PM EST [facility] Blood Venous blood specimen / Unknown Venipuncture / Unknown 06/30/2024 10:09 AM EST 06/30/2024 10:09 AM EST us Curtis Gonzáles FINANCIAL PROJECT MANAGER LAB BLOOD ORDERABLES Final Resul t [facility] [address] [place] [address], [place] [phone] * Aspartate aminotransferase (06/30/2024 10:09 AM EST) Pathologist [facility] AST (SGOT) 16 10 - 42 unit/L LAB CHEMISTRY METHOD 06/30/2024 12:32 PM [facility] Blood Venous blood specimen / Unknown Venipuncture / Unknown 06/30/2024 10:09 AM EST 06/30/2024 10:09 AM EST [facility] FINANCIAL PROJECT MANAGER LAB BLOOD ORDERABLES Final Resul t [facility] [address] [place] [address], * Thyroid stimulating hormone (06/30/2024 10:09 AM EST) Pathologist [facility] TSH 1.57 0.40 - 4.00 mcIU/mL LAB CHEMISTRY METHOD 06/30/2024 12:32 PM [facility] Blood Venous blood specimen / Unknown Venipuncture / Unknown 06/30/2024 10:09 AM EST 06/30/2024 10:09 AM EST Curtis Gonzáles FINANCIAL PROJECT MANAGER LAB BLOOD ORDERABLES Final Resul t [facility] [address] [place] [address], * Hemoglobin A1c (06/30/2024 10:09 AM EST) Pathologist [facility] Hemoglobin A1C 5.4 <6.5 % LAB CHEMISTRY METHOD 06/30/2024 1:53 PM [facility] Mean Bld Glu Estim. 108 mg/dL LAB CHEMISTRY METHOD 06/30/2024 1:53 PM [facility] Blood Venous blood specimen / Unknown Venipuncture / Unknown 06/30/2024 10:09 AM EST 06/30/2024 10:09 AM EST us Curtis Gonzáles FINANCIAL PROJECT MANAGER LAB BLOOD ORDERABLES Final Resul t Performing Organization Address City/[facility]/ZIP Co de Phone Number [facility] [address] [place] [address], [place] [phone] * Creatine kinase (06/30/2024 10:09 AM EST) Total CK 85 22 - 269 unit/L LAB CHEMISTRY METHOD 06/30/2024 12:42 PM [facility] Blood Venous blood specimen / Unknown Venipuncture / Unknown 06/30/2024 10:09 AM EST 06/30/2024 10:09 AM EST us Curtis Gonzáles FINANCIAL PROJECT MANAGER LAB BLOOD ORDERABLES Final Resul t Performing Organization Address [facility]/ZIP Co de Phone Number [facility] [address] [place] [address], [place] [phone] * Basic metabolic panel (06/30/2024 10:09 AM EST) Pathologist [facility] Sodium 138 133 - 145 mmol/L LAB CHEMISTRY METHOD 06/30/2024 12:42 PM [facility] Potassium 4.2 3.5 - 5.5 mmol/L LAB CHEMISTRY METHOD 06/30/2024 12:42 PM [facility] Chloride 106 96 - 110 mmol/L LAB CHEMISTRY METHOD 06/30/2024 12:42 PM [facility] CO2 27 21 - 32 mmol/L LAB CHEMISTRY METHOD 06/30/2024 12:42 PM [facility] Anion Gap 5 3 - 11 LAB CHEMISTRY METHOD 06/30/2024 12:42 PM [facility] Glucose 82 70 - 100 mg/dL LAB CHEMISTRY METHOD 06/30/2024 12:42 PM [facility] BUN 24 5 - 25 mg/dL [...] 25.0 LAB CHEMISTRY METHOD 06/30/2024 12:42 PM [facility] Calcium 9.7 8.5 - 10.5 mg/dL LAB CHEMISTRY METHOD 06/30/2024 12:42 PM [facility] Blood Venous blood specimen / Unknown Venipuncture / Unknown 06/30/2024 10:09 AM EST 06/30/2024 10:09 AM EST us Curtis Gonzáles FINANCIAL PROJECT MANAGER LAB BLOOD ORDERABLES Final Resul t [facility] [address] [place] [address], * MIKE SCREENING DIGITAL (10/26/2023 9:37 AM EDT) Anatomical Region Laterality Modality Mammography 10/26/2023 7:41 AM EDT Narrative 10/26/2023 9:37 AM EDT [facility] Diagnostic Imaging Department [address] [place] [address] Patient: ??MARTA ARNDT ?/Age/Sex: 1955 - 68 - F Unit#: ??[id number] ? Location/Status: ??SPDIMAM/REG CLI ? Mnemonic/Ordering Site: ??DIGSC/SPMAM Ordering Physician: ??DINESH OVIEDO MD [facility] Screening Digital - 10/26/23 - 800 Report Status:Signed EXAM: [facility] Screening Digital EXAM DATE AND TIME: 10/26/2023 8:02 AM HISTORY: ??Screening. Mother had breast carcinoma at age 80. COMPARISON: ??10/23/22, 10/21/21, 10/19/20 TECHNIQUE: Bilateral digital breast tomosynthesis was performed in the CC and MLO projections. Computer aided detection with Edai 3D 3.1 was employed. TISSUE DENSITY: a. [...] Procedure Note Lilian Rodriguez MD - 02/08/2024 [facility] Diagnostic Imaging Department [address] [place], [place] [id number] Patient: MARTA ARNDT /Age/Sex: 1955 - 68 - F Unit#: [id number] Location/Status: SPDIMAM/REG CLI Mnemonic/Ordering Site: [facility] Ordering Physician: DINESH OVIEDO MD [facility] Screening Digital - 10/26/23 - 08 Report Status:Signed EXAM: [facility] Screening Digital EXAM DATE AND TIME: 10/26/2023 8:02 AM HISTORY: Screening. Mother had breast carcinoma at age 80. COMPARISON: 10/23/22, 10/21/21, 10/19/20 TECHNIQUE: Bilateral digital breast tomosynthesis was performed in the CCand MLO projections. Computer aided detection with Edai 3D 3.1was employed. TISSUE DENSITY: a. The [...] PM EDT Narrative 02/06/2020 2:20 PM EDT [facility] Diagnostic Imaging Department [address] [place] [address] Patient: ??MARTA ARNDT ?/Age/Sex: 1955 - 64 - F Unit#: ??[id number] ? Location/Status: ??SPDIMAM/REG CLI ? Mnemonic/Ordering Site: [...] probability of hip fracture of 0.9%. Code 48139 Dictating Physician: ??ZULEMA GALICIA MD Electronically Signed by: ??ZULEMA GALICIA MD Dic Date/Time: ??02/06/20 1419 Sign date/Time: ??02/06/20 1420 Procedure Note Zulema Galicia MD - 06/11/2022 [facility] Diagnostic Imaging Department [address] [place] [address] Patient: MARTA ARNDT Jessica /Age/Sex: 1955 - 64 - F Unit#: [id number] [facility]Ordering Site: [facility] Ordering Physician: DINESH OVIEDO MD [facility] Dexa Axial Skeleton - 02/06/20 [...] density of the femurs bilaterally is 1.031 gm/[id number] is 102% of that of young normals [...] probability of hip fracture of 0.9%. Code 25081 Dictating Physician: ZULEMA GALICIA MD Electronically Signed by: ZULEMA GALICIA MD Dic Date/Time: 02/06/20 141 Sign date/Time: 02/06/20 142 Dinesh Oviedo DO [facility] [place]ED[place] Final Resul t from Last 3 Months or Most Recently Relevant to Health Maintenance Insurance [employer] [place] [address] Care Teams Ticket Sales Agent Relationship Specialty Start Date End Date Dinesh Oviedo DO [address] [place] [phone] PCP - General Internal Medicine 04/02/21
== END 2024-08-31 09:21 | disposition home or self-care (01) ==
LOC: HO.RHE 08:36
PROVIDERS: PCP Internal Medicine; Visit Provider Student in an Organized Health Care Education/Training Program
DX: L40.50 Arthropathic psoriasis, unspecified (principal); Z79.899 Other long term (current) drug therapy; Z51.81 Encounter for therapeutic drug level monitoring; Z79.620 Long term (current) use of immunosuppressive biologic
CPT/HCPCS: 99214; G2211

== ENCOUNTER → 2024-08-31 08:36 | Outpatient (BNVA) | payer MEDICARE, SELFPAY | PROVIDERS: PCP Internal Medicine; Visit Provider Student in an Organized Health Care Education/Training Program | DX: L40.50 Arthropathic psoriasis, unspecified (principal); Z51.81 Encounter for therapeutic drug level monitoring; Z79.620 Long term (current) use of immunosuppressive biologic; Z79.899 Other long term (current) drug therapy | CPT/HCPCS: 99212 ==

== ENCOUNTER 2025-01-02 08:11 | Outpatient (REF) | payer MEDICARE, SELFPAY ==
--- OUTSIDE RECORDS SUMMARY | 2025-01-02 08:14 | XMS_ITS | Encounter Summary ---
Author Organization [facility] Address [address] [place] [address] Care Team Providers Care Dental Services Director Name Role Phone Omar Villagran MD Primary Care Provider Filipe Fuller MD Primary Care Provider Pepe Easley MD Unavailable [phone] Michelle Weston NP Unavailable [phone] Encounter Details Date Type Department Care Team Description 08/23/2001 [facility] [address] [place] [phone] Jose De Jesus Perez MD Social History Tobacco Use Types Packs/Day Years Used Date Smoking Tobacco: Never Assessed Sex Assigned at Date Recorded Not on file Job Start Date Occupation Industry Not on file Not on file Not on file documented as of this encounter Plan of Treatment Not on file documented as of this encounter Procedures Procedure Name Priority Date/Time Associated Diagnosis Comments OUTSIDE CT Routine 08/23/2001 documented in this encounter Results * OUTSIDE CT (08/23/2001) Provider Default RADIOLOGY documented in this encounter Visit Diagnoses Not on filedocumented in this encounter Care Teams Dental Services Director Relationship Specialty Start Date End Date Omar Villagran MD PCP - General 08/15/99 04/01/21 Filipe Garrett MD PCP - General Internal Medicine 04/02/21 Pepe Bobo MD [address] [place] [address] [address] [place], [place] [phone] Specialist Cardiovascular Disease 05/01/21 Michelle Weston, [employer]NAC[employer] [address] [place] [address] Cardiology 12/04/22 documented as of this encounter
[2025-01-02 10:25] LABS: MANUAL DIFF FLAG NO
[2025-01-02 10:45] LABS: Hematocrit 40.9 % (37.0-47.0); Hemoglobin 14.0 g/dl (12.0-16.0); Imm Gran Abs Auto 0.01 X10*3/uL (0.00-0.03); Imm Gran Pct Auto 0.2 % (0.0-0.4); Lymphocytes Absolute Auto 3.3 X10*3/uL (1.2-4.9); Mean Corpuscular HGB Conc 34.2 g/dl (31.0-35.0); Mean Corpuscular Hemoglobin 31.9 pg (27.0-33.0); Mean Corpuscular Volume 93.2 fL (80.0-98.0); NRBC Abs Auto 0.000 X10*3/uL (0.0-0.012); NRBC Pct Auto 0.0 /100WBC (0.0-0.2); Platelet Count 241 X10*3/uL (160-400); Red Blood Count 4.39 X10*6/uL (4.20-5.50); White Blood Count 6.5 X10*3/uL (4.8-10.8)
[2025-01-02 11:22] LABS: Alanine Aminotransferase 21 U/L (0-31); Albumin Level 4.0 g/dL (3.5-5.0); Alkaline Phosphatase 85 U/L (39-117); Anion Gap 12 (12-20); Aspartate Amino Transferase 23 U/L (5-31); Blood Urea Nitrogen 19 mg/dL (9-16); Calcium 9.7 mg/dL (8.4-10.2); Carbon Dioxide 26 mmol/L (22-29); Chloride 110 mmol/L (96-108); Estimated Glomerular Filt Rate 48; HBS Num1 1.93 mIU/mL (0-7.99); HBc Num1 0.20 S/CO (0.00-0.79); HBsAGNum1 0.39 S/CO (0.00-0.99); Hepatitis A Antibody IgM 0.18 Index (0-0.79); Hepatitis B Surface Antigen Negative (Negative); Potassium 3.8 mmol/L (3.3-5.1); Sodium 144 mmol/L (135-145); Total Protein 7.0 g/dL (6.5-8.0); ~HepC Num1 0.21 S/CO (0.00-0.79); ~Hepatitis A Antibody IgM Nonreactive (Nonreactive); ~Hepatitis B Surface Antibody NONREACTIVE (Nonreactive); ~Hepatitis C Antibody Nonreactive (Nonreactive)
[2025-01-05 06:53] LABS: TS Negative Control Passed; TS Panel A 0; TS Panel B 1; TS Positive Control Passed; TSpotTB Negative (Negative)
[2025-01-05 22:37] LABS: HLA B27 Negative (Negative)
== END 2025-01-02 08:12 | disposition home or self-care (01) ==
LOC: HO.HMGCLDS 08:11
PROVIDERS: Visit Provider Student in an Organized Health Care Education/Training Program
DX: L40.50 Arthropathic psoriasis, unspecified (principal)
CPT/HCPCS: 36415; 80053; 85025; 85652; 86140; 86481; 86704; 86706; 86709; 86803; 86812; 87340

== ENCOUNTER 2025-01-05 08:02 | Outpatient (AMB) | payer MEDICARE, SELFPAY ==
--- OUTSIDE RECORDS SUMMARY | 2025-01-05 08:05 | XMS_ITS | Clinical Summary ---
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 Active calcium carbonate-vitami n D 600 mg-10 mcg (400 unit) per tablet Take 1 tablet by mouth 2 (two) times a day. Active folic acid (FOLVITE) 1 mg tablet Take 1 tablet (1 mg total) by mouth 1 (one) time each day. 1 Active methotrexate 2.5 mg tablet 5 tablets by mouth every week 1 Active simvastatin (ZOCOR) 20 mg tablet Take 1 tablet (20 mg total) by mouth at bedtime. Active lisinopriL (PRINIVIL,ZESTRI L) 30 mg tabletIndication s:Primary hypertension Take 1 tablet (30 mg total) by mouth 1 (one) time each day. 30 each 5 026 Active hydroCHLOROthiaz kathya (HYDRODIURIL) 25 mg tablet Take 1 tablet (25 mg total) by mouth 1 (one) time each day in the morning. 1 025 Discontin ued(Thera py completed ) rosuvastatin (CRESTOR) 5 mg tablet Take 1 tablet (5 mg total) by mouth 1 (one) time each day. 1 025 Discontin ued(Thera py completed ) traMADoL (ULTRAM) 50 mg tablet Take 50 mg by mouth as needed. 025 Discontin ued(Thera py completed ) lisinopriL (PRINIVIL,ZESTRI L) 20 mg tablet Take 1 tablet (20 mg total) by mouth 1 (one) time each day. 025 Discontin ued(Dose adjustmen t) Active Problems Problem Noted Date Diagnosed Date [...] at home. 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 Assessment & Plan (12/07/2024 10:28 AM EDT): The patient has a history of hypertension. She is currently on lisinopril 20 mg daily. Blood pressure today in our office was noted to be slightly elevated. The patient states that her systolic blood pressure at home is also usually in the 140s. Therefore, her blood pressure is uncontrolled. Will increase the lisinopril from 20 mg orally daily up to 30 mg orally daily. Will complete a follow-up basic metabolic panel 1 week after changing the dose of the lisinopril. Orders: lisinopriL (PRINIVIL,ZESTRIL) 30 mg tablet; Take 1 tablet (30 mg total) by mouth 1 (one) time each day. Basic metabolic panel; Future Hyperlipidemia 06/25/2021 Overview (07/07/2024): Last Assessment & Plan: Patient has history of hyperlipidemia managed by her primary care provider. She continues on rosuvastatin as prescribed. I have reviewed with the patient the importance of a heart healthy lifestyle which includes eating a low-fat low-salt diet, getting regular exercise, maintaining a healthy weight, not smoking, and following up with routine medical care. Assessment & Plan (12/07/2024 10:28 AM EDT): The patient has a history of hyperlipidemia. She is currently on simvastatin 20 mg orally daily. B panel showed an adequate cholesterol control. Will continue her current therapy. LBBB (left bundle branch block) 06/25/2021 Overview [...] nitroglycerin, or if they were to faint. Assessment & Plan (12/07/2024 10:28 AM EDT): The patient has a history of a chronic left bundle branch block. Her history of a left bundle branch block close back to at least to the year 2020. The patient underwent a nuclear stress test in March 2021 for evaluation of her left bundle branch block. The nuclear stress test was noted to be normal given that there was no evidence of ischemia or infarct on the myocardial perfusion imaging. After that, the patient underwent an echocardiogram in August 2021 which showed a normal LVEF, normal regional wall motion of the left ventricle, paradoxical septal motion consistent with a left bundle branch block, normal RV size and function, and no significant valvular disease. As such, no evidence of any significant structural heart disease on the echocardiogram. On today's visit, the patient was noted to be asymptomatic from a cardiac standpoint. Her EKG done today redemonstrated her known chronic left bundle-branch block. Given that the patient is currently asymptomatic, no further testing is needed at this point. Orders: ECG 12 lead Abnormal mammogram of left breast 10/11/2018 Encounters Date Type Department Care Team Description 12/29/2024 Telephone Gastroenterology - [address] [place] [phone] Gagan Keita MD MISSING INFORMATION 12/07/2024 9:50 AM EDT Office Visit [facility] Cardiology [facility] [address] [place] [phone] Yudith Soni MD LBBB (left bundle branch block) (Primary Dx); Pure hypercholesterolemia ; Primary hypertension 10/27/2024 7:51 AM EDT - 10/27/2024 11:59 PM EDT [facility] [address] [phone] Encounter for screening mammogram for breast cancer Discharge Disposition: Home or Self Care from Last 3 Months Surgical History Surgery Date Site/Laterality Comments HYSTERECTOMY PROCEDURE: HISTORICAL HYSTERECTOMY OTHER SURGICAL HISTORY 2014 PROCEDURE: HISTORY OTHER; COMMENT: [place] Cyst Removed OTHER SURGICAL HISTORY PROCEDURE: HISTORY OTHER; COMMENT: Neuroma right foot- podiatry Medical History Medical History Date Comments Psoriatic arthritis (CMS/HCC V24, CMS/HCC V28) DX:Psoriatic arthritis (HCC) IGT (impaired glucose tolerance) DX:IGT [...] = 0.6 oz pur e alcohol) Comments No Sex and Gender Information Value Date Recorded Sex Assigned at Not on file Legal Sex Female 12:11 PM EST Gender Identity Not on file Sexual Orientation Not on file Obstetrics History Para Term AB IAB SAB Ectopic Multiple Livin g Live Births 3 Last Filed Vital Signs Vital Sign Reading Time Taken Comments Blood Pressure 140/86 12/07/2024 9:55 AM EDT Pulse 82 12/07/2024 9:55 AM EDT Temperature - - Respiratory Rate - - Oxygen Saturation 97% 12/07/2024 9:55 AM EDT Inhaled Oxygen Concentration - - Weight 85.7 kg (189 lb) 12/07/2024 9:55 AM EDT Height 167.6 cm (5' 6 ) 12/07/2024 9:55 AM EDT Body Mass Index 30.51 12/07/2024 9:55 AM EDT Plan of Treatment Upcoming Encounters Date Type Department Care Team (Late st Contact Info) Description 01/23/2025 8:15 AM EDT Appointment [facility] CT Scan [address] [place] [phone] 02/28/2025 10:10 AM EDT Office Visit Gastroenterology - [address] [facility] [address] [place] [phone] Sunita Rae PA [address] [address] 10/30/2025 8:00 AM EDT [facility]ointment [facility] [address] [place] [address] Health Maintenance Due Date Last Done Comments Pneumococcal Vaccine: 50+ Years (1 of 1 - PCV) 10/01/2003 Colorectal Cancer Screening: Colonoscopy 05/31/2022 Depression Screening 05/31/2022 Falls Risk Assessment 05/31/2022 Hepatitis C Screening 05/31/2022 Medicare Annual Wellness Visit 05/31/2022 Social Influencers of Health Screening 05/31/2022 COVID-19 Vaccine (7 - Pfizer risk season) 2024 05/06/2024, 04/23/2022, 01/23/2022, Additional history exists Zoster Vaccines (2 of 2) 02/01/2025 12/07/2024 Influenza Vaccine (#1) 2025 , 06/08/2023, 04/23/2022 Hypertension/CHF/CAD Annual BMP Blood Test 12/15/2025 12/15/2024, 06/30/2024 Breast Cancer Screening 10/27/2026 10/28/19 25, 10/26/2023, 10/23/2022, Additional history exists RSV Immunization Adult Patients (1 - 1-dose 75+ series) 2028 Cholesterol Screening (Lipid Panel) 12/26/2029 12/26/2024, 06/30/2024 Osteoporosis Screening (Bone Density Screening) 02/05/2030 02/06/2020 DTaP,Tdap,and Td Vaccines (2 - Td or Tdap) 11/10/2033 11/11/2023 HIB Vaccines Aged Out No longer eligi [...] age to complete this topic Meningococcal B Vaccine Aged Out No l onger eligible based on patient's age to complete this topic RSV Immunization Patients Under 20 months Aged Out No longer eligible based on patient's age to complete this topic Varicella Vaccines Aged Out No longer eligible based on patient's age to complete this topic Procedures Procedure Name Priority Date/Time Associated Diagnosis Comments CBC WITH AUTO DIFFERENTIAL Routine 12/26/2024 9:34 AM EDT HTN (hypertension) HLD (hyperlipidemia) Left lower quadrant pain Mucus in stool C-REACTIVE PROTEIN Routine 12/26/2024 9: 34 AM EDT HTN (hypertension) HLD (hyperlipidemia) Left lower quadrant pain Mucus in stool SEDIMENTATION RATE Routine 12/26/2024 9: 34 AM EDT HTN (hypertension) HLD (hyperlipidemia) Left lower quadrant pain Mucus in stool AMYLASE Routine 12/26/2024 9:34 AM EDT HTN (hypertension) HLD (hyperlipidemia) Left lower quadrant pain Mucus in stool LIPASE Routine 12/26/2024 9:34 AM EDT HTN (hypertension) HLD (hyperlipidemia) Left lower quadrant pain Mucus in stool HEPATIC FUNCTION PANEL Routine 12/26/2024 9:34 AM EDT HTN (hypertension) HLD (hyperlipidemia) Left lower quadrant pain Mucus in stool CBC AND DIFFERENTIAL Routine 12/26/2024 9:34 AM EDT HTN (hypertension) HLD (hyperlipidemia) Left lower quadrant pain Mucus in stool CREATINE KINASE Routine 12/26/2024 9:34 AM EDT HTN (hypertension) HLD (hyperlipidemia) Left lower quadrant pain Mucus in stool LIPID PANEL WITH REFLEX TO DIRECT LDL Routine 12/26/2024 9:34 AM EDT HTN (hypertension) HLD (hyperlipidemia) Left lower quadrant pain Mucus in stool BASIC METABOLIC PANEL Routine 12/15/2024 8:56 AM EDT Primary hypertension ECG 12-LEAD Routine 12/07/2024 10:00 AM EDT LBBB (left bundle branch block) MG MAMMO DIGITAL SCREENING W ZAY BILAT Routine 10/27/2024 8:27 AM EDT Encounter for screening mammogram for breast cancer MIKE DEXA AXIAL SKELETON Routine 02/06/2020 2:20 PM EDT Encounter for screening for osteoporosis from Last 3 Months or Most Recently Relevant to Health Maintenance Results * (ABNORMAL) Lipid panel with reflex to direct LDL (12/26/2024 9:34 AM EDT) Cholesterol 201(H) 0 - 200 mg/dL LAB CHEMISTRY METHOD 12/26/2024 11:43 AM EDT [facility] Triglycerides 89 0 - 150 mg/dL LAB CHEMISTRY METHOD 12/26/2024 11:43 AM EDT [facility] HDL 79 >=40 mg/dL LAB CHEMISTRY METHOD 12/26/2024 11:43 AM EDT [facility] LDL Calculated 104(H) 0 - 100 mg/dL LAB CHEMISTRY METHOD 12/26/2024 11:43 AM EDT [facility] VLDL Cholesterol Dwayne 17.8 mg/dL LAB CHEMISTRY METHOD 12/26/2024 11:43 AM EDT [facility] Non HDL Chol. (LDL+VLDL) 122 <145 mg/dL LAB CHEMISTRY METHOD 12/26/2024 11:43 AM [facility] Chol/HDL Ratio 2.5 0.0 - 4.4 LAB CHEMISTRY METHOD 12/26/2024 11:43 AM T [facility] Blood Venous blood specimen / Unknown Venipuncture / Unknown 12/26/2024 9:34 AM EDT 12/26/2024 9:34 AM EDT us Curtis Gonzáles [employer] LAB BLOOD ORDERABLES Final Resul t [facility] [address] [place] [address], * CBC auto differential (12/26/2024 9:34 AM EDT) WBC 6.1 4.8 - 10.8 K/mcL LAB HEMETOLOGY METHOD 12/26/2024 11:43 AM [facility] RBC 4.80 3.80 - 4.80 M/mcL LAB HEMETOLOGY METHOD 12/26/2024 11:43 AM [facility] Hemoglobin 15.0 11.5 - 16.0 g/dL LAB HEMETOLOGY METHOD 12/26/2024 11:43 AM [facility] Hematocrit 45.6 35.0 - 47.0 % LAB HEMETOLOGY METHOD 12/26/2024 11:43 AM [facility] MCV 94.6 79.0 - 98.0 FL LAB HEMETOLOGY METHOD 12/26/2024 11:43 AM [facility] MCH 31.1 27.0 - 32.0 pcg LAB HEMETOLOGY METHOD 12/26/2024 11:43 AM [facility] MCHC 32.9 32.0 - 37.0 g/dL LAB HEMETOLOGY METHOD 12/26/2024 11:43 AM [facility] RDW 12.5 11.0 - 15.0 % LAB HEMETOLOGY METHOD 12/26/2024 11:43 AM [facility] Platelets 242 130 - 400 K/mcL LAB HEMETOLOGY METHOD 12/26/2024 11:43 AM [facility] MPV 10.1 7.0 - 11.0 FL LAB HEMETOLOGY METHOD 12/26/2024 11:43 AM [facility] NRBC 0.0 <1.0 % LAB HEMETOLOGY METHOD 12/26/2024 11:43 AM [facility] NRBC Absolute 0.00 <0.10 K/mcL LAB HEMETOLOGY METHOD 12/26/2024 11:43 AM [facility] Neutrophils Relative 37.5 % LAB HEMETOLOGY METHOD 12/26/2024 11:43 AM [facility] Lymphocytes Relative 46.5 % LAB HEMETOLOGY METHOD 12/26/2024 11:43 AM [facility] Monocytes Relative 11.9 % LAB HEMETOLOGY METHOD 12/26/2024 11:43 AM [facility] Eosinophils Relative 2.6 % LAB HEMETOLOGY METHOD 12/26/2024 11:43 AM [facility] Basophils Relative 1.3 % LAB HEMETOLOGY METHOD 12/26/2024 11:43 AM [facility] Immature Granulocytes Relative 0.2 % LAB HEMETOLOGY METHOD 12/26/2024 11:43 AM [facility] Neutrophils Absolute 2.29 1.50 - 7.00 K/mcL LAB HEMETOLOGY METHOD 12/26/2024 11:43 AM EDT [facility] Lymphocytes Absolute 2.84 1.00 - 5.00 K/mcL LAB HEMETOLOGY METHOD 12/26/2024 11:43 AM EDT [facility] Monocytes Absolute 0.73 0.20 - 1.00 K/mcL LAB HEMETOLOGY METHOD 12/26/2024 11:43 AM EDT [facility] Eosinophils Absolute 0.16 0.00 - 0.50 K/mcL LAB HEMETOLOGY METHOD 12/26/2024 11:43 AM EDT [facility] Basophils Absolute 0.08 0.00 - 0.20 K/mcL LAB HEMETOLOGY METHOD 12/26/2024 11:43 AM EDT [facility] Immature Granulocytes Absolute 0.01 0.00 - 0.03 K/mcL LAB HEMETOLOGY METHOD 12/26/2024 11:43 AM EDT [facility] Blood Venous blood specimen / Unknown Venipuncture / Unknown 12/26/2024 9:34 AM EDT 12/26/2024 9:34 AM EDT us Curtis Gonzáles [employer] LAB BLOOD ORDERABLES Final Resul t Performing Organization Address City/[facility] de Phone Number [facility] [address] [place] [address], [place] [phone] * Sedimentation rate (12/26/2024 9:34 AM EDT) Sed Rate 11 0 - 30 mm/hr LAB HEMETOLOGY METHOD 12/26/2024 11:55 AM EDT [facility] Blood Venous blood specimen / Unknown Venipuncture / Unknown 12/26/2024 9:34 AM EDT 12/26/2024 9:34 AM EDT us Curtis Gonzáles [employer] LAB BLOOD ORDERABLES Final Resul t Performing Organization Address City/[facility]/ZIP Co de Phone Number [facility] [address] [place] [address], [place] [phone] * C-reactive protein (12/26/2024 9:34 AM EDT) [facility] C-Reactive Protein <0.29 <=0.50 mg/dL LAB CHEMISTRY METHOD 12/26/2024 11:41 AM EDT [facility] Blood Venous blood specimen / Unknown Venipuncture / Unknown 12/26/2024 9:34 AM EDT 12/26/2024 9:34 AM EDT [facility] [employer] LAB BLOOD ORDERABLES Final Resul t Performing Organization Address City/[facility]/ZIP Co de Phone Number [facility] [address] [place] [address], [place] [phone] * Lipase (12/26/2024 9:34 AM EDT) [facility] Lipase 28 13 - 75 unit/L LAB CHEMISTRY METHOD 12/26/2024 11:43 AM EDT [facility] Blood Venous blood specimen / Unknown Venipuncture / Unknown 12/26/2024 9:34 AM EDT 12/26/2024 9:34 AM EDT Kirsten Gonzáles [employer] LAB BLOOD ORDERABLES Final Resul t [facility] [address] [place] [address], [place] [phone] * Creatine kinase (12/26/2024 9:34 AM EDT) [facility] Total CK 68 22 - 269 unit/L LAB CHEMISTRY METHOD 12/26/2024 11:43 AM EDT [facility] Blood Venous blood specimen / Unknown Venipuncture / Unknown 12/26/2024 9:34 AM EDT 12/26/2024 9:34 AM EDT [facility] [employer] LAB BLOOD ORDERABLES Final Resul t Performing Organization Address [facility]/ZIP Co de Phone Number [facility] [address] [place] [address], [place] [phone] * Amylase (12/26/2024 9:34 AM EDT) Pathologist [facility] Amylase 43 25 - 115 unit/L LAB CHEMISTRY METHOD 12/26/2024 11:41 AM EDT [facility] Blood Venous blood specimen / Unknown Venipuncture / Unknown 12/26/2024 9:34 AM EDT 12/26/2024 9:34 AM EDT [facility] LAB BLOOD ORDERABLES Final Resul t Performing Organization Address [facility] de Phone Number [facility] [address] [place] [address], [place] [phone] * Hepatic function panel (12/26/2024 9:34 AM EDT) Pathologist [facility] Total Protein 7.8 6.0 - 8.0 g/dL LAB CHEMISTRY METHOD 12/26/2024 11:43 AM [facility] Albumin 4.0 3.2 - 5.0 g/dL LAB CHEMISTRY METHOD 12/26/2024 11:43 AM [facility] Total Bilirubin 0.9 0.0 - 1.4 mg/dL LAB CHEMISTRY METHOD 12/26[facility]24 [facility] Bilirubin, Direct 0.2 0.0 - 0.3 mg/dL LAB CHEMISTRY METHOD 12/26/2024 [facility] Bilirubin, Indirect 0.7 0.0 - 1.1 mg/dL LAB CHEMISTRY METHOD 12/26/2024 11:43 AM [facility] ALT (SGPT) 24 10 - 60 unit/L LAB CHEMISTRY METHOD 12/26/2024 11:43 AM [facility] AST (SGOT) 20 10 - 42 unit/L LAB CHEMISTRY METHOD 12/26/2024 11:43 AM [facility] Alkaline Phosphatase 98 42 - 121 unit/L LAB CHEMISTRY METHOD 12/26/2024 11:43 AM [facility] Blood Venous blood specimen / Unknown Venipuncture / Unknown 12/26/2024 9:34 AM EDT 12/26/2024 9:34 AM EDT us Curtis Gonzáles [employer] LAB BLOOD ORDERABLES Final Resul t [facility] [address] [place] [address], * (ABNORMAL) Basic metabolic panel (12/15/2024 8:56 AM EDT) Sodium 140 133 - 145 mmol/L LAB CHEMISTRY METHOD 12/15/2024 10:23 AM [facility] Potassium 3.8 3.5 - 5.5 mmol/L LAB CHEMISTRY METHOD 12/15/2024 10:23 AM [facility] Chloride 106 96 - 110 mmol/L LAB CHEMISTRY METHOD 12/15/2024 10:23 AM [facility] CO2 29 21 - 32 mmol/L LAB CHEMISTRY METHOD 12/15/2024 10:23 AM [facility] Anion Gap 5 3 - 11 LAB CHEMISTRY METHOD 12/15/2024 10:23 AM [facility] Glucose 103(H) 70 - 100 mg/dL LAB CHEMISTRY METHOD 12/15/2024 10:23 AM [facility] BUN 23 5 - 25 mg/dL LAB CHEMISTRY METHOD 12/15/2024 10:23 AM [facility] Creatinine 1.12(H) 0.50 - 1.10 mg/dL LAB CHEMISTRY METHOD 12/15/2024 10:23 AM EDT [facility] eGFR 53(L) >=60 mL/min/1. 73m2 LAB CHEMISTRY METHOD 12/15/2024 10:23 AM EDT [facility] Comment:Calculation based on the Chronic Kidney Disease Epidemiology Collaboration (CKD-EPI) equation refit without adjustment for race. BUN/Creatinine Ratio 20.5 LAB CHEMISTRY METHOD 12/15/2024 10:23 AM EDT [facility] Calcium 9.5 8.5 - 10.5 mg/dL LAB CHEMISTRY METHOD 12/15/2024 10:23 AM EDT [facility] Blood Venous blood specimen / Unknown Venipuncture / Unknown 12/15/2024 8:56 AM EDT 12/15/2024 9:42 AM EDT us Yudith Soni MD LAB BLOOD ORDERABLES F inal Result Performing Organization Address City/[facility]/ZIP Co de Phone Number [facility] [address] [place] [address], * ECG 12 lead (12/07/2024 10:00 AM EDT) Ventricular Rate ECG 86 BPM GEMUSE Atrial Rate 86 BPM GEMUSE P-R Interval 156 ms GEMUSE QRS Duration 144 ms GEMUSE Q-T Interval 384 ms GEMUSE QTc 459 ms GEMUSE P Wave [place] 49 degrees GEMUSE R [place] 0 degrees GEMUSE T [place] 118 degrees GEMUSE ECG Interpretation Normal sinus rhythm Left bundle branch block Abnormal ECG No previous ECGs available Confirmed by YUDITH SONI ([id number]) on 12/07/2024 10:24:36 AM GEMUSE 12/07/2024 10:0 0 AM EDT 12/07/2024 10:24 AM EDT Yudith Soni MD ECG ORDERABLES Final Result GEMUSE * MG Mammo Digital Screening w Zay bilat (10/27/2024 8:27 AM EDT) Anatomical Region Laterality Modality Breast Bilateral Mammography 10/27/2024 10:1 2 AM EDT Impressions 10/27/2024 10:50 AM EDT No mammographic evidence of malignancy. No suspicious interval change. A negative mammogram in the presence of a clinically suspicious palpable abnormality does not preclude the possibility of malignancy or alter the indications for biopsy. ASSESSMENT: BI-RADS 1: NEGATIVE RECOMMENDATION(S): 1: Routine screening mammogram BILATERAL in 1 year. [facility] location[facility] [address], [address] -------- FINAL REPORT -------- Dictated By: Jose De Jesus Perez Dictated Date: 10/27/2024 10:12 ET Assigned Physician: Jose De Jesus Perez Reviewed and Electronically Signed By: Jose De Jesus Perez Signed Date: 10/27/2024 10:50 ET Workstation ID: [id number] Transcribed By: Self Edit Transcribed Date: 10/27/2024 10:24 ET Narrative 10/27/2024 10:50 AM EDT EXAM: SCREENING MAMMOGRAPHY, BILATERAL HISTORY: SCREENING. Mother with history of breast cancer. COMPARISON: 10/26/23, 10/23/22, 10/21/21, 10/19/20 TECHNIQUE: Synthesized CC and MLO projections of each breast. Tomosynthesis of each breast in the CC and MLO projections. ADDITIONAL IMAGING: None Computer-aided detection was employed with the iCAD ProFound AI 3-D. TISSUE DENSITY: There are scattered areas of fibroglandular density. (BI-RADS category B) FINDINGS: RIGHT BREAST: No suspicious mass. No suspicious calcification. No distortion. No additional suspicious right breast findings LEFT BREAST: No suspicious mass. No suspicious calcification. No distortion. No additional suspicious left breast findings Procedure Note Jose De Jesus Perez MD - 10/27/2024 EXAM: SCREENING MAMMOGRAPHY, BILATERAL HISTORY: SCREENING. Mother with history of breast cancer. COMPARISON: 10/26/23, 10/23/22, 10/21/21, 10/19/20 TECHNIQUE: Synthesized CC and MLO projections of each breast.Tomosynthesis of each breast in the CC and MLO projections. ADDITIONAL IMAGING: None Computer-aided detection was employed with the iCAD BEKIZ AI 3-D. TISSUE DENSITY: There are scattered areas of fibroglandular density.(BI-RADS category B) FINDINGS: RIGHT BREAST: No suspicious mass. No suspicious calcification. No distortion. Noadditional suspicious right breast findings LEFT BREAST: No suspicious mass. No suspicious calcification. No distortion. Noadditional suspicious left breast findings IMPRESSION: No mammographic evidence of malignancy. No suspicious interval change. A negative mammogram in the presence of a clinically suspicious palpableabnormality does not preclude the possibility of malignancy or alter theindications for biopsy. ASSESSMENT: BI-RADS 1: NEGATIVE RECOMMENDATION(S): 1: Routine screening mammogram BILATERAL in 1 year. [facility] location: [facility] [address] [place], [address] -------- FINAL REPORT -------- Dictated By: Jose De Jesus Perez Dictated Date: 10/27/2024 10:12 ET Assigned Physician: Jose De Jesus Perez Reviewed and Electronically Signed By: Jose De Jesus Perez Signed Date: 10/27/2024 10:50 ET Workstation ID: [id number] Transcribed By: Self Edit Transcribed Date: 10/27/2024 10:24 ET us Self Referral Sppl IMG BI PROCEDURES Final Resul t * MIKE DEXA AXIAL SKELETON (02/06/2020 2:20 PM EDT) Anatomical Region Laterality Modality Mammography 02/06/2020 12:4 1 PM EDT Narrative 02/06/2020 2:20 PM EDT [facility] Diagnostic Imaging Department [address] [place] [address] Patient: MARTA ARNDT /Age/Sex: 1955 - 64 - F Unit#: [id number] Location/Status: [facility] Mnemonic/Ordering Site: [facility] Ordering Physician: FILIPE OVIEDO MD [facility] Dexa Axial Skeleton - 02/06/20 - 1321 HISTORY: The patient is a 64-year-old postmenopausal female with clinical concern for metabolic bone disease. FINDINGS: Dual [...] 109% of that of age matched controls. This yields a T-score of 0.2 and a Z-score of 0.7 and there is therefore no evidence of osteoporosis or osteopenia here. However, the T-score of the right femoral neck -1.5 which is diagnostic of osteopenia. IMPRESSION: 1. Osteopenia. 2. FRAX analysis yields a 10-year probability of major osteoporotic fracture of 8.4% and a 10-year probability of hip fracture of 0.9%. Code 26604 Dictating Physician: ZULEMA GALICIA MD Electronically Signed by: ZULEMA GALICIA MD Dic Date/Time: 02/06/20 1419 Sign date/Time: 02/06/20 142 Procedure Note Zulema Galicia MD - 06/11/2022 [facility] Diagnostic Imaging Department [address] [place] [address] Patient: MARTA ARNDT /Age/Sex: 1955 - 64 - F Unit#: [id number] Location/Status: SPDIMAM/REG CLI Mnemonic/Ordering Site: MAMDEXAAX/SPMAM Ordering Physician: FILIPE OVIEDO MD Mike Dexa Axial Skeleton - [...] density of the femurs bilaterally is 1.031 gm/pc5vxgta is 102% of that of young normals [...] probability of hip fracture of 0.9%. Code 74324 Dictating Physician: ZULEMA GALICIA MD Electronically Signed by: ZULEMA GALICIA MD Dic Date/Time: 02/06/20 1419 Sign date/Time: 02/06/20 1420 Filipe Oviedo DO IMG BI PROCEDURES Final Resul t from Last 3 Months or Most Recently Relevant to Health Maintenance Insurance [employer] Care Teams Construction Project Mgr Relationship Specialty Start Date End Date Filipe Oviedo DO [address] [place] [id number] PCP - General Internal Medicine 04/02/21
--- NOTE | 2025-01-05 08:36 | A.OFFVIS_ITS ---
Vital Signs 01/05/25 08:42 Height 5 ft 7 in Weight 186 lb 15.232 oz BMI 29.3 BP 152/80 H Blood Pressure Location Lt brachial Position Sitting Pulse 72 Pulse Source Pulse Oximeter Pulse Oximetry (%) 97 Oxygen Delivery Method Room Air Intake Visit Reasons: f/u PsA Intake Note: Patient presents for PsA follow up. Allergies clavulanic acid (From Augmentin) Allergy (Mild, Verified 01/05/25 08:41) Stomach Upset rosuvastatin (From Crestor) Adverse Reaction (Intermediate, Verified 01/05/25 08:41) Muscle aches HPI Comments Details: Patient is a 68-year-old female with psoriasis and psoriatic arthritis here today for follow up Interval History: Patient last seen 08/31/24 - doing okay - complaining of pain to the hands but running them under hot water helped Today, - continues to do well, no new complaints - currently undergoing evaluation for left lower quadrant abdominal pain Rheumatologic History: Psoriatic arthritis/Psoriasis Ddx 2019 Methotrexate: 12/2018- present Enbrel: 12/2018- 11/2019 active disease Humira: 05/2019- present Current Rheumatology Medication(s): Methotrexate 12.5 mg every week Folic acid 1 mg every day Humira 40 mg every 2 weeks PFSH Medical History Psoriasis Psoriatic arthritis Surgical History Hx of removal of cyst H/O rotator cuff surgery Hx of hysterectomy Family History Father CVD (cardiovascular disease) Mother Cancer Sister Rheumatoid arthritis Social History Alcohol intake: never Patient Tobacco Use Status: Never used Tobacco Substance Use Type: Marijuana Review of Systems Const Details: Review of Systems Constitutional: Denies fever, chills, weight loss ENT: Denies vision changes, eye pain or eye redness, dental caries, dry mouth GI: Denies nausea, vomiting, diarrhea Pulm: Denies SOB, GOODMAN, hemoptysis, wheezing Cards: Denies chest pain, palpitations Skin: Denies Raynaud's, rash, nail changes, photosensitivity, 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 Well appearing and in no apparent painful distress HEENT Conjunctiva and sclera clear. ?Pupils equal round and reactive to light. ?No lymphadenopathy. ? CHEST/RESPIRATORY SYSTEM Normal respiratory effort and able to speak in complete sentences. ?Clear to auscultation bilaterally. ?No crackles, rales, rhonchi, wheezes heard. CARDIAC SYSTEM Regular rate and rhythm. ?S1 and S2 heard no murmurs. 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 No deformities noted. ?Herbeden's nodes noted throughout. No TTP Wrists: ?Full range of motion at the wrists without pain. ?No tenderness to palpation or synovitis noted to the wrists. Elbows: Full range of motion without pain. No tenderness, weakness, swelling, increased warmth or erythema. Shoulders: Full range of motion without pain. No tenderness, weakness, swelling, increased warmth or erythema. Knees: ?Full range of motion. ?No tenderness, swelling, increased warmth or e rythema.?Crepitations palpated bilaterally Ankles: Full range of motion. ?No tenderness, swelling, increased warmth or erythema.? Feet: ?Negative squeeze test. ?No tenderness to palpation or swelling of the MTPs. Tender points:?No tenderness to palpation of the bilateral trapezius, supraspinatus, greater trochanters, anterior costochondral junctions, bilateral gluteal areas, bilateral suboccipital muscle insertions SKIN Skin intact without rashes. Results Reviewed Results Reviewed: Laboratory Tests 08/23/24 01/02/25 11:17 08:22 WBC 6.5 RBC 4.39 Hgb 14.0 Hct 40.9 Plt Count 241 ESR 13 Sodium 144 Potassium 3.8 Chloride 110 H Carbon Dioxide 26 BUN 19 H Creatinine 0.91 1.11 Estimated GFR > 60 48 AST 23 ALT 21 Alkaline Phosphatase 85 C-Reactive Protein < 0.10 Rheumatology labs 12/28/18 01/02/25 15:20 08:22 Rheumatoid Factor < 15.0 Cycl Citrul Peptide IgG <16 [place] Screen Negative HLA-B27 Pending Infectious serologies 01/02/25 08:22 Hepatitis A IgM Ab Nonreactive Hep Bs Antigen Negative Hep Bs Antibody NONREACTIVE Hep B Core Total Ab Nonreactive Hepatitis C Ab (EIA) Nonreactive TB Test (T-Spot) Com Negative Assessment & Plan Assessment & Plan (1) Psoriatic arthritis: Comment: Humira: 05/2019- present Enbrel: 12/2018- 11/2019 active disease Methotrexate: 12/2018- present Code(s): L40.50 - Arthropathic psoriasis, unspecified Category: Medical Plan: #PsA Patient is a 68-year-old female with psoriasis complicated by psoriatic arthritis currently in low disease activity/remission on Humira and methotrexate Plan - Humira 40mg SC every other week - Methotrexate 12.5mg PO weekly - Folic acid 1mg daily - Can consider decreasing methotrexate dose at next visit - RTC 6 months - Labs before visit: CBC, CMP, ESR, CRP (2) custodial methotrexate user: Code(s): Z79.899 - Other long term care social worker (current) drug therapy Category: Medical Plan: #Long-term Current Use of Methotrexate Discussed with patient the benefits and risks of methotrexate for managing their rheumatic condition Benefits include reduced pain, reduced mortality, maintenance of remission and reduction of flares Risks include oral ulcers, photosensitivity, hepatotoxicity, hematologic toxicity, pneumonitis, flu-like symptoms (especially day after administration), nodulosis, lymphomas ? Limit alcohol and avoid Bactrim ? Monitoring: ?CBC, BMP, LFTs every 3-4 months and hepatitis serologies as needed (3) Encounter for monitoring of adalimumab therapy: Code(s): Z51.81 - Encounter for therapeutic drug level monitoring; Z79.620 - custodial (current) use of immunosuppressive biologic Plan: #Long-term Use of TNF Inhibitors: Humira Discussed with the patient the benefits and risks of TNF inhibitors for the management of the rheumatic condition Benefits include reduce pain, maintenance of remission and reduction of flares as well as ?progression of the disease Risks include injection sites/infusion reactions, serious infections (such as bacterial infections, opportunistic infections), malignancy, delaminating syndromes, autoimmune phenomena, CHF exacerbations, palmar plantar psoriasis and cytopenias Recommended rotating injection sites, and holding medication during and for up to 1 week after resolution of a febrile illness or open skin wound Plan I spent 30 minutes reviewing the record and labs, taking a history, examining the patient, discussing the treatment plan, ordering diagnostic work up and documenting in the medical record Orders: Orders Comprehensive Met. Panel 6 Months L40.50 - Arthropathic psoriasis, unspecified Erythrocyte Sedimentation Rate 6 Months L40.50 - Arthropathic psoriasis, unspecified Complete Blood Count Auto Diff 6 Months L40.50 - Arthropathic psoriasis, unspecified C Reactive Protein 6 Months L40.50 - Arthropathic psoriasis, unspecified Coding Level of Care Code Est Pt Level 4 (96246) Complex EM visit Add On G2211 Diagnoses Psoriatic arthritis L40.50 roasterman methotrexate user Z79.899 Encounter for monitoring of adalimumab therapy Z51.81; Z79.620
[2025-01-05 08:42] VITALS: BP 152/80; PULSE 72; O2SAT 97; BMI 29.3
== END 2025-01-05 08:55 | disposition home or self-care (01) ==
LOC: HO.RHE 08:02
PROVIDERS: PCP Internal Medicine; Visit Provider Student in an Organized Health Care Education/Training Program
DX: L40.50 Arthropathic psoriasis, unspecified (principal); Z79.899 Other long term (current) drug therapy; Z51.81 Encounter for therapeutic drug level monitoring; Z79.620 Long term (current) use of immunosuppressive biologic
CPT/HCPCS: 99214; G2211

== ENCOUNTER → 2025-01-05 08:02 | Outpatient (BNVA) | payer MEDICARE, SELFPAY | PROVIDERS: PCP Internal Medicine; Visit Provider Student in an Organized Health Care Education/Training Program | DX: Z51.81 Encounter for therapeutic drug level monitoring (principal); L40.50 Arthropathic psoriasis, unspecified; Z79.620 Long term (current) use of immunosuppressive biologic; Z79.631 Long term (current) use of antimetabolite agent; Z79.899 Other long term (current) drug therapy | CPT/HCPCS: 99212 ==